=== PATIENT | male | born 1945 | race Caucasian/White ===

== ENCOUNTER 2022-02-17 16:22 | Emergency (ER) | payer OTHER ==
[~2022-02-17] VITALS: Ht 180.3 cm; Wt 117.9 kg
[2022-02-17 16:27] VITALS: BP 158/94
[2022-02-17] MEDS ORDERED: METFORMIN 500 MG TABLET PO ONE (17:00)
[2022-02-17] MEDS ORDERED: METFORMIN 500 MG TABLET ONE (17:25)
== END 2022-02-17 18:26 ==
LOC: ER 17:03
DX: E11.65 Type 2 diabetes mellitus with hyperglycemia (principal); Z60.2 Problems related to living alone
CPT/HCPCS: 82962-TC

== ENCOUNTER 2022-04-09 16:11 | Emergency (ER) | payer OTHER ==
[~2022-04-09] VITALS: Ht 167.6 cm; Wt 108.9 kg
--- NOTE | 2022-04-09 16:19 | NUR ---
ISABELL RA39 FROM [facility] "More Altered than usual. Trach - Vent Dependent" Dx w/Pneumonia on Abx BS-196", TO ER BED 8, HOOKED TO GEOGRAPHIC INFORMATION SCIENTIST, SINUS RHYTHM, CHANGED TO HOSP GOWN, PATIENT WARM TO TOUCH, COOLING MEASURES DONE. RESPIRATORY THERAPIST AT BEDSIDE, VENT SETTINGS OF FiO2: 100%, VT: 500, RATE: 16, PEEP: 5.0. NOTED W RAC IV PERIPHERAL LINE 24G PATENT AND FLUSHING. DR CIFUENTES AT BEDSIDE
--- NOTE | 2022-04-09 16:30 | NUR ---
RAPID COVID SWAB DONE AND SENT TO LAB
--- NOTE | 2022-04-09 16:33 | NUR ---
MOVE SHEET SUBMITTED.
[2022-04-09 16:41] LABS: BASOPHILS # (AUTO) 0.2 K/uL (0.0-0.2); BASOPHILS % (AUTO) 1.1 % (0.0-2.0); EOSINOPHILS % (AUTO) 0.1 % (0.0-6.0); HEMATOCRIT 31 % (39-51); HEMOGLOBIN 9.9 g/dL (13.5-17.5); LYMPHOCYTES # (AUTO) 0.4 K/uL (0.8-4.8); LYMPHOCYTES % (AUTO) 2.7 % (20.0-44.0); MEAN CORPUSCULAR HGB CONC 32 g/dl (31.0-36.0); MEAN CORPUSCULAR VOLUME 89 fL (80-96); MONOCYTES # (AUTO) 1.1 K/uL (0.1-1.30); MONOCYTES % (AUTO) 7.2 % (2.0-12.0); NEUTROPHILS # (AUTO) 14.2 K/uL (1.8-8.9); NEUTROPHILS % (AUTO) 88.9 % (43.0-81.0); PLATELET COUNT (AUTO) 325 K/uL (150-450); RED BLOOD CELL COUNT(AUTO) 3.43 MIL/uL (4.5-6.0); WHITE BLOOD COUNT (AUTO) 15.9 K/uL (4.3-11.0)
[2022-04-09] MEDS ORDERED: INSU100V7 SQ (16:41)
[2022-04-09] MEDS ORDERED: MULT-447 GT (16:41)
[2022-04-09] MEDS ORDERED: INSU100V39 SQ (16:41)
[2022-04-09] MEDS ORDERED: CRAN425C6 GT (16:41)
[2022-04-09] MEDS ORDERED: METO25TA20 GT (16:41)
[2022-04-09] MEDS ORDERED: ACET-2605 GT (16:41)
[2022-04-09] MEDS ORDERED: GLUC1KIT IM (16:41)
[2022-04-09] MEDS ORDERED: MAGN400T26 GT (16:41)
[2022-04-09] MEDS ORDERED: PANT40SU2 GT (16:41)
[2022-04-09] MEDS ORDERED: ZINC50TA69 GT (16:41)
[2022-04-09] MEDS ORDERED: NUT.237L30 GT (16:41)
[2022-04-09] MEDS ORDERED: CRAN3875 GT (16:41)
[2022-04-09] MEDS ORDERED: METR500T GT (16:41)
[2022-04-09] MEDS ORDERED: BISA10SU11 RC (16:41)
[2022-04-09] MEDS ORDERED: CHOL100043 GT (16:41)
[2022-04-09] MEDS ORDERED: DOCU50LI GT (16:41)
[2022-04-09] MEDS ORDERED: THIA100T88 GT (16:41)
[2022-04-09] MEDS ORDERED: HYDR-3976 GT (16:41)
[2022-04-09] MEDS ORDERED: SCOP1PAT11 TD (16:41)
[2022-04-09] MEDS ORDERED: IPRA0.2S9 IH (16:41)
[2022-04-09] MEDS ORDERED: SENN-261 GT (16:41)
[2022-04-09] MEDS ORDERED: LORA-259 GT (16:41)
[2022-04-09] MEDS ORDERED: MAGN400O6 GT (16:41)
[2022-04-09] MEDS ORDERED: ASCO-352 GT (16:41)
[2022-04-09] MEDS ORDERED: FOLI0.4T6 GT (16:41)
[2022-04-09] MEDS ORDERED: CHLO473M5 MM (16:41)
[2022-04-09] MEDS ORDERED: ACET-868 GT (16:41)
[2022-04-09] MEDS ORDERED: CEFE1VIA3 IM (16:41)
[2022-04-09] MEDS ORDERED: ALBU2.5V38 IH (16:41)
[2022-04-09] MEDS ORDERED: ATOR10TA GT (16:41)
[2022-04-09 16:42] LABS: BILIRUBIN,URINE NEGATIVE (NEGATIVE); COLOR,URINE YELLOW (YELLOW); LEUKOCYTE ESTERASE ,URINE NEGATIVE (NEGATIVE); NITRITE, URINE NEGATIVE (NEGATIVE); PROTEIN,URINE 100 mg/dl (NEGATIVE); UGLUCOSE NEGATIVE (NEGATIVE)
[2022-04-09] MEDS ORDERED: ACETAMINOPHEN 650 MG/SUPP.RECT RC ONE (16:43)
[2022-04-09 16:46] LABS: BACTERIA,URINE RARE /HPF (None Seen); HYALINE CASTS, URINE Many /LPF (None Seen); MUCUS,URINE Moderate /LPF (None Seen); WBC,URINE 0-2 /HPF (0-3)
[2022-04-09] MEDS: ACETAMINOPHEN 650 MG/SUPP.RECT RC ONE (16:50)
[2022-04-09 16:56] LABS: ALANINE AMINOTRANSFERASE 66 U/L (12-78); ALBUMIN 1.9 g/dL (3.4-5.0); ALKALINE PHOSPHATASE 136 U/L (46-116); ASPARTATE AMINOTRANSFERASE 58 U/L (15-37); BILIRUBIN,DIRECT 0.1 mg/dL (0.0-0.2); BILIRUBIN,TOTAL 0.3 mg/dL (0.2-1.0); CARBON DIOXIDE 31 mmol/L (21-32); CHLORIDE 97 mmol/L (98-107); CREATININE 0.9 mg/dL (0.6-1.3); GLUCOSE 172 mg/dL (74-106); POTASSIUM 4.1 mmol/L (3.5-5.1); SODIUM SERUM 131 mmol/L (136-145); TOTAL PROTEIN, SERUM 6.1 g/dL (6.4-8.2); UREA NITROGEN, BLOOD 29 mg/dL (7-18)
--- NOTE | 2022-04-09 17:00 | NUR ---
RT Patient brought in by fire department. Placed trach patient (Bivona Portex) on given vent settings: AC 16 500 40% +5. Suctioned thick moderate amount of yellow secretions. Trach secure and patent. Ambu bag at bedside. Vent plugged into red outlet. Alarms on and audible. No SOB or respiratory distress noted at this time.
[2022-04-09] MEDS ORDERED: VANCOMYCIN 1 GM VIAL ONE (17:03)
[2022-04-09] MEDS ORDERED: PIPERACILLIN /TAZOBACTAM 3.375 G VIAL IV ONE (17:04)
[2022-04-09] MEDS: PIPERACILLIN /TAZOBACTAM 3.375 G in IV D5W 50 ML IV ONE (17:06)
[2022-04-09] MEDS: VANCOMYCIN 1 GM in IV D5W 250 ML IV ONE (17:40)
--- NOTE | 2022-04-09 18:32 | NUR ---
FAMILY LEFT CONTACT # VONDA, SON [phone] WILBER, DAUGHTER [phone]
--- NOTE | 2022-04-09 18:34 | NUR ---
PAGED EPIC ALUMNI RELATIONS OFFICER
[2022-04-09] MEDS ORDERED: ACETAMINOPHEN 650 MG/20.3 ML UDC NG PRN (19:00)
[2022-04-09] MEDS ORDERED: ALBUTEROL FS 2.5 MG/0.5 ML VIAL.NEB NEB PRN (19:00)
[2022-04-09] MEDS ORDERED: ONDANSETRON HCL/PF 4 MG/2 ML VIAL IVP PRN (19:00)
[2022-04-09] MEDS ORDERED: IPRATROPIUM BROMIDE 14 GM INHALER (or 12.9 GM) IH PRN (19:00)
[2022-04-09] MEDS ORDERED: IV NS 0.9% 1,000 ML IV SCH (19:00)
--- NOTE | 2022-04-09 19:12 | NUR ---
REPORT GIVEN TO JUAN YATES FOR [facility]
--- NOTE | 2022-04-09 21:47 | NUR ---
CALLED [facility] AND SPOKE WITH DHARA. BUSINESS EXECUTIVE NADER IS CURRENTLY UNAVAILABLE AT THIS TIME. SHE WILL BE PAGING THE CM TO CONTACT BACK.
--- NOTE | 2022-04-09 22:09 | NUR ---
PT IS ACCEPTED AT [facility]. GOING TO 6TH FLOOR ROOM 1617 UNDER THE CARE OF DR. ZUNIGA. CALL [phone] FOR REPORT. NO AMBULANCE ETA AT THIS TIME
--- NOTE | 2022-04-09 22:18 | NUR ---
ETA 0200 FOR UMBRELLA CUTTER VIA [facility]
--- NOTE | 2022-04-09 22:41 | NUR ---
CALLED [facility] AND SPOKE TO DHARA YATES FOR REPORT. [phone]. STATED [facility] DOES NOT ACCEPT VENT PT'S. AWAITING CALL BACK FROM [facility] LEASING PROFESSIONAL FOR PT TO BE ASSIGNED TO TELE ROOM AND CALL BACK NUMBER
--- NOTE | 2022-04-09 22:56 | NUR ---
DHARA FROM [facility] CALLED AND UPDATED HER ON PT'S VENT SETTINGS
--- NOTE | 2022-04-09 23:37 | NUR ---
NEW ROOM. GOING TO TELE 3N RM 2326 CALL [phone]
[2022-04-10] MEDS ORDERED: PIPERACILLIN /TAZOBACTAM 3.375 G in IV D5W 50 ML IV SCH ×2
--- NOTE | 2022-04-10 01:20 | NUR ---
CALLED [facility] FOR REPORT AND WAS ASKED TO CALL BACK IN 5 MINUTES
--- NOTE | 2022-04-10 01:32 | NUR ---
CALLED [facility] FOR REPORT AND WAS ASKED TO CALL BACK IN 30 MINUTES
--- NOTE | 2022-04-10 02:11 | NUR ---
REPORT GIVEN TO SERGIO FROM [facility] FOR [facility]
--- NOTE | 2022-04-10 03:07 | NUR ---
REPORT GIVEN TO [facility] AND OPERATIONS PLANT ATTENDANT FOR PT TO TRANSFER TO [facility]
[2022-04-10 03:17] VITALS: BP 163/88
[2022-04-10] MEDS ORDERED: PANTOPRAZOLE 40 MG VIAL IV SCH (09:00)
== END 2022-04-10 03:29 | disposition short-term general hospital (02) ==
LOC: ER 16:14
DX: A41.89 Other specified sepsis (principal); J18.9 Pneumonia, unspecified organism; J96.20 Acute and chronic respiratory failure, unspecified whether with hypoxia or hypercapnia; E66.01 Morbid (severe) obesity due to excess calories; Z68.39 Body mass index [BMI] 39.0-39.9, adult; Z93.0 Tracheostomy status; Z20.822 Contact with and (suspected) exposure to COVID-19; E87.1 Hypo-osmolality and hyponatremia; R13.10 Dysphagia, unspecified; S12.500D Unspecified displaced fracture of sixth cervical vertebra, subsequent encounter for fracture with routine healing; S12.400D Unspecified displaced fracture of fifth cervical vertebra, subsequent encounter for fracture with routine healing; W19.XXXD Unspecified fall, subsequent encounter; E11.9 Type 2 diabetes mellitus without complications; Z79.4 Long term (current) use of insulin; Z93.1 Gastrostomy status; Z99.11 Dependence on respirator [ventilator] status; E78.5 Hyperlipidemia, unspecified; T14.8XXA Other injury of unspecified body region, initial encounter; X58.XXXA Exposure to other specified factors, initial encounter; Y92.89 Other specified places as the place of occurrence of the external cause; D64.9 Anemia, unspecified; R79.89 Other specified abnormal findings of blood chemistry; G92.8 Other toxic encephalopathy
CPT/HCPCS: 99291; 96365; 71045; 96367; 87426; 84145; 85025; 80048; 87086; 83605 ×2; 80076; 81001; 36415; 84484; 85730; 31720; 87040 ×2; 93005; 87081; J3370; J2543; J7060; C9803

== ENCOUNTER 2022-04-27 01:21 | Inpatient (IN) | payer OTHER ==
[~2022-04-27] VITALS: Ht 172.7 cm; Wt 113.4 kg
[~2022-04-27 01:21] MED LIST: ACET-2605 GT; ACET-868 GT; ALBU2.5V38 IH; ASCO-352 GT; ATOR10TA GT; BISA10SU11 RC; CEFE1VIA3 IM; CHLO473M5 MM; CHOL100043 GT; CRAN3875 GT; CRAN425C6 GT; DOCU50LI GT; FOLI0.4T6 GT; GLUC1KIT IM; HYDR-3976 GT; INSU100V39 SQ; INSU100V7 SQ; IPRA0.2S9 IH; LORA-259 GT; MAGN400O6 GT; MAGN400T26 GT; METO25TA20 GT; METR500T GT; MULT-447 GT; NUT.237L30 GT; PANT40SU2 GT; SCOP1PAT11 TD; SENN-261 GT; THIA100T88 GT; ZINC50TA69 GT
--- NOTE | 2022-04-27 01:30 | NUR ---
ERIC FROM SN[facility] FOR ALTERED MENTAL STATUS BS-160. PATIENT USUALLY RESPONDS WITH A NOD, WAS FOUND ALTERED AT 0045 FROM FACILITY. PATIENT IS FEBRILE AT 101.4. IN BED 08 ON MONITOR AND POX, AWAITING MD CALLES.
--- NOTE | 2022-04-27 01:30 | NUR ---
RT AT PT'S BEDSIDE: TRACH BIVONA 7 INTACT VENT SETTINGS AT: AC RR 14 TV 500 PEEP 5 FIO2 50 SATTING AT 96%
--- NOTE | 2022-04-27 01:30 | NUR ---
RT AT BEDSIDE
--- NOTE | 2022-04-27 01:31 | NUR ---
SUPERVISOR BOTTLE HOUSE CLEANERS: F/C DRAINING URINE; PATENT AND INTACT. GTUBE INTACT.
--- NOTE | 2022-04-27 01:38 | NUR ---
BRIAN COLLECTED AND SENT TO LAB
--- NOTE | 2022-04-27 01:40 | NUR ---
IV ESTABLISHED JEREL #20G S/L
[2022-04-27] MEDS ORDERED: PIPERACILLIN /TAZOBACTAM 3.375 G VIAL IV ONE (01:44)
[2022-04-27] MEDS ORDERED: VANCOMYCIN 1 GM VIAL ONE (01:44)
[2022-04-27] MEDS ORDERED: ACETAMINOPHEN 650 MG/SUPP.RECT RC ONE ×2 (01:44→02:00)
--- NOTE | 2022-04-27 01:44 | NUR ---
RT NOTE PT RECEIVED ON TRACH WITH AMBU BAG @ 100% BEING ADMINISTERED VIA GURNEY. PLACED PT VENT ON MECHANICAL VENTILATOR WITH CURRENT SETTINGS OF AC 14, 500, 50%, +5. BIVONA [address] CUFF NOTED WITH WATER AND IS INFLATED. SUCTION DONE, MODERATE THICK YELLOW SECRETIONS NOTED. TRACH SECURED AND PATENT. NECK BRACE IN PLACE. PT TOLERATING CURRENT SETTINGS WELL AND WILL BE MONITORED CLOSELY. TRUDY MARTINEZ @ BEDSIDE. Addendum: 04/27/22 at 0147 by EFREN WASHINGTON RT Amended: Links added.
--- NOTE | 2022-04-27 01:47 | NUR ---
URINE COLLECTED AND SENT TO LAB
--- NOTE | 2022-04-27 01:49 | NUR ---
MOVE SHEET SUBMITTED.
--- NOTE | 2022-04-27 01:50 | NUR ---
BLOOD AND CULTURES COLLECTED AND SENT TO LAB
--- NOTE | 2022-04-27 01:56 | NUR ---
POC BG [id number]
[2022-04-27] MEDS ORDERED: IV NS 0.9% 1,000 ML BAG IV ONE (02:00)
[2022-04-27] MEDS ORDERED: PIPERACILLIN /TAZOBACTAM 3.375 G in IV D5W 50 ML IV ONE (02:00)
[2022-04-27] MEDS ORDERED: VANCOMYCIN 1 GM in IV D5W 250 ML IV ONE (02:00)
--- NOTE | 2022-04-27 02:00 | NUR ---
PT TAKEN TO CT VIA GURLB WITH RT
--- NOTE | 2022-04-27 02:05 | NUR ---
MILEAGE CLERK AT PT'S BEDSIDE
--- NOTE | 2022-04-27 02:16 | NUR ---
PT RETURNED TO ER BED [address]
[2022-04-27 02:22] LABS: HEMATOCRIT 33 % (39-51); HEMOGLOBIN 10.5 g/dL (13.5-17.5); LYMPHOCYTES # (AUTO) 0.6 K/uL (0.8-4.8); LYMPHOCYTES % (AUTO) 5.4 % (20.0-44.0); MEAN CORPUSCULAR HGB CONC 32 g/dl (31.0-36.0); MEAN CORPUSCULAR VOLUME 89 fL (80-96); MONOCYTES # (AUTO) 0.6 K/uL (0.1-1.30); MONOCYTES % (AUTO) 4.9 % (2.0-12.0); NEUTROPHILS # (AUTO) 10.2 K/uL (1.8-8.9); NEUTROPHILS % (AUTO) 89.7 % (43.0-81.0); PLATELET COUNT (AUTO) 292 K/uL (150-450); RED BLOOD CELL COUNT(AUTO) 3.66 MIL/uL (4.5-6.0); WHITE BLOOD COUNT (AUTO) 11.4 K/uL (4.3-11.0)
[2022-04-27 02:27] LABS: BILIRUBIN,URINE NEGATIVE (NEGATIVE); COLOR,URINE DARK YELLOW (YELLOW); LEUKOCYTE ESTERASE ,URINE MODERATE (NEGATIVE); NITRITE, URINE NEGATIVE (NEGATIVE); PROTEIN,URINE 100 mg/dl (NEGATIVE); UGLUCOSE NEGATIVE (NEGATIVE)
[2022-04-27 02:35] LABS: BACTERIA,URINE Moderate /HPF (None Seen); SQUAMOUS EPITHELIAL CELL,UR Few /HPF (None Seen); WBC,URINE 21-50 /HPF (0-3); YEAST,URINE Hyphal filaments /HPF (None Seen)
[2022-04-27 02:37] LABS: CALCIUM, SERUM 8.7 mg/dL (8.5-10.1); CHLORIDE 94 mmol/L (98-107); CREATININE 0.6 mg/dL (0.6-1.3); GLUCOSE 299 mg/dL (74-106); POTASSIUM 4.5 mmol/L (3.5-5.1); SODIUM SERUM 132 mmol/L (136-145); UREA NITROGEN, BLOOD 24 mg/dL (7-18)
[2022-04-27 02:46] LABS: CARBON DIOXIDE 41 mmol/L (21-32)
--- NOTE | 2022-04-27 02:49 | NUR ---
CO2 LEVEL 41
[2022-04-27 02:53] LABS: ALANINE AMINOTRANSFERASE 56 U/L (12-78); ALBUMIN 1.8 g/dL (3.4-5.0); ALKALINE PHOSPHATASE 524 U/L (46-116); ASPARTATE AMINOTRANSFERASE 34 U/L (15-37); BILIRUBIN,DIRECT 0.3 mg/dL (0.0-0.2); BILIRUBIN,TOTAL 0.5 mg/dL (0.2-1.0); TOTAL PROTEIN, SERUM 6.6 g/dL (6.4-8.2)
--- NOTE | 2022-04-27 03:13 | NUR ---
STAT RAD PAGED
--- NOTE | 2022-04-27 03:16 | NUR ---
POC BS ACCUCHECK 256; DR. DOW DO AWARE
[2022-04-27] MEDS ORDERED: ONDANSETRON HCL/PF 4 MG/2 ML VIAL IVP PRN (07:00)
[2022-04-27] MEDS ORDERED: ZOLPIDEM TARTRATE 5 MG TABLET PO PRN (07:00)
[2022-04-27] MEDS ORDERED: MAG HYDROX/AL HYDROX/SIMETH 30 ML UDC PO PRN (07:00)
[2022-04-27] MEDS ORDERED: MAGNESIUM HYDROXIDE 30 ML UDC PO PRN (07:00)
[2022-04-27] MEDS ORDERED: DEXTROSE 50%-WATER 50 ML DISP.SYRIN IV PRN (07:00)
[2022-04-27] MEDS ORDERED: Z GUARD REMEDY 4 OZ OINT TP PRN (07:00)
[2022-04-27] MEDS ORDERED: PANTOPRAZOLE 40 MG TABLET.DR PO ONE (07:52)
[2022-04-27] MEDS: PANTOPRAZOLE 40 MG TABLET.DR PO SCH (08:00)
--- NOTE | 2022-04-27 08:47 | NUR ---
report given to Yoel YATES for EAG[facility]
[2022-04-27] MEDS ORDERED: Medication Not On Formulary EA (Cran/Vitc/Mannose/Inulin/Brom (Uti-Stat Liquid) 3,875 MG GT SCH (09:00)
[2022-04-27] MEDS ORDERED: LORAZEPAM 1 MG TABLET GT PRN (09:00)
[2022-04-27 09:15] VITALS: BP 142/70
--- NOTE | 2022-04-27 09:15 | NUR ---
RADIOCOMMUNICATIONS TECHNICIANFOOT PRESS OPERATOR NOTE: RECEIVED PT. IN ESE FROM ER AT 0915. REPORT GIVEN BY MAINTENANCE CONSTRUCTION HELPER ANTONIO. PT. IS NON-VERBAL, OPENS EYES AND FOLLOWS SIMPLE COMMANDS SUCH BLINKING EYES. PT. ON MECHANICAL VENT WITH TRACH SIZE PORTEX#7; AC - 14; TV - 500; FIO2 - 45; PEEP - 5; O2 SAT - 95%. NO S/S OF RESPIRATORY DISTRESS. PT. ON TELE MONITOR THAT READS NSR @ 63 BPM. OTHER VS: T - 98.5 F; BP - 142/70. PT. HAS G-TUBE IN MID ABDOMEN, 3 ML RESIDUAL NOTED, CLAMPED. PT. HAS MACHADO CATH, DRAINING CLEAR YELLOW URINE. IV SITE ON L AC #20G, PATENT AND FLUSHING WELL, NO S/S OF INFILTRATION, SALINE LOCKED AT THIS TIME. HE HAS A SACRAL WOUND, CLEANSED WITH NS AND DRIED, COVERED WITH MEPILEX. WOUND CONSULT ORDERED. PT. IS QUADRIPLEGIC. SAFETY MEASURES IN PLACE: BED IN LOWEST AND LOCKED POSITION, HOB ELEVATED; SIDE RAILS UP X3; BED ALARM ON. WILL CONTINUE TO MONITOR PT. FOR ANY CHANGES.
--- NOTE | 2022-04-27 09:28 | NUR ---
Received pt on AC 14 500 50% 5. Titrated to 40%. Trach is secured and patent. Ambu bag at bedside. Pt is moved to CIRO, vent plugged it to red outlet, spare trach at bedside. Portex 7/ Bivona not available.
[2022-04-27] MEDS: PIPERACILLIN /TAZOBACTAM 3.375 G in IV D5W 100 ML IV SCH ×2 (10:45→17:47)
[2022-04-27] MEDS: IV NS 0.9% 1,000 ML IV PRN (10:45)
[2022-04-27] MEDS: CHLORHEXIDINE GLUCONATE 15 ML UDC MM SCH ×2 (10:45→21:22)
[2022-04-27] MEDS: CHOLECALCIFEROL 1,000 UNIT TABLET (VIT D3) GT SCH (10:46)
[2022-04-27] MEDS: MULTIVIT W/MINERALS 1 TAB TABLET GT SCH (10:46)
[2022-04-27] MEDS: METOPROLOL TARTRATE 25 MG TABLET GT SCH ×2 (10:46→21:23)
[2022-04-27] MEDS: ASCORBIC ACID 500 MG TABLET GT SCH (10:46)
[2022-04-27] MEDS: FOLIC ACID 1 MG TABLET GT SCH (10:47)
[2022-04-27 10:53] LABS: ABG BASE EXCESS 13.1 mmol/L; ABG OXYGEN SATURATION 98.7 % (92.0-98.5); ABG PCO2 41.2 mmHg (35.0-45.0); ABG PH 7.565 (7.350-7.450); ABG PO2 132.3 mmHg (75.0-100.0); AaDO2 105.5 mmHg; COHb 0.1 % (0.5-1.5); MetHb 0.1 % (0.0-1.5); O2Hb 98.5 % (94.0-97.0); SITE, ABG Right Radial; VENT MODE, BG AC14 500 40% +5
[2022-04-27] MEDS ORDERED: ALBUTEROL FS 2.5 MG/3 ML VIAL.NEB NEB PRN (11:30)
[2022-04-27] MEDS ORDERED: IPRATROPIUM NEB FS 0.5 MG/2.5 ML AMPUL.NEB NEB PRN (11:30)
[2022-04-27 12:00] VITALS: BP 150/81
[2022-04-27] MEDS: BLOOD SUGAR DIAGNOSTIC 1 EACH STRIP IN SCH ×2 (13:44→18:07)
[2022-04-27] MEDS: VANCOMYCIN 1.25 GM in IV D5W 250 ML IV SCH (14:14)
[2022-04-27 16:00] VITALS: BP 150/85
[2022-04-27] MEDS: GLUCERNA 1.2 1,000 ML BOTTLE PEG PRN (16:56)
[2022-04-27] MEDS: MAGNESIUM OXIDE 400 MG TABLET GT SCH (17:45)
--- NOTE | 2022-04-27 19:12 | NUR ---
DRAGSAW OPERATOR CLOSING NOTE: PT. REMAINS IN BED, OPENS EYES, NON-VERBAL, FOLLOWS COMMANDS SUCH BLINKING EYES. PT. ON TRACH, MECHANICALLY VENTILATED, TRACH SIZE IS PORTEX#7; AC - 14; TV - 500; FIO2 - 45%; PEEP - 5; 02 SAT - 95%. NO S/S OF RESPIRATORY DISTRESS. PT. ON TELE MONITOR THAT READS NSR WITH HR OF 79 BPM. PT. ON MACHADO AND DRAINING CLEAR YELLOW URINE WITH OUTPUT OF 500 ML THIS SHIFT. PT. HAS L AC #20G WITH NS RUNNING AT 75 ML/HR. PATENT. IV SITE DRESSING C/D/I AND NO S/S OF INFILTRATION. WOUND CLEANED AND DRESSED WITH MEPILEX. TURNED AND REPOSITIONED Q2H. SAFETY MEASURES REMAINS IN PLACE: BED IN LOCKED AND LOWEST POSITION, HOB ELEVATED, SIDE RAILS UP X3, BED ALARM ON. WILL ENDORSE CONTINUITY OF CARE TO BUSINESS PERFORMANCE MANAGER RN.
[2022-04-27 20:00] VITALS: BP 151/72
--- NOTE | 2022-04-27 20:03 | NUR ---
DEPARTMENT CHAIR OPENING NOTES: RECEIVED PATIENT AWAKE IN BED, BED IN LOW POSITION CALL LIGHTS WITHIN REACH, NO COMPLAIN OF PAIN AND DISCOMFORT AT THIS TIME, ON MECHANICAL VENT SATURATING WELL, PATIENT ON TELE MONITOR- SR75,ON G TUBE OF GLUCERNA 1.2@30ML/HR INFUSING WELL, PATIENT WITH LAC#20 WITH ONGOING NSS@75ML/HR INFUSING WELL, PATIENT KEPT CLEAN AND DRY ALL NEEDS MET WILL CONTINUE TO MONITOR.
[2022-04-27] MEDS: DOCUSATE SODIUM LIQ 100 MG/10 ML UDC GT SCH (21:22)
[2022-04-27] MEDS: ATORVASTATIN 10 MG TABLET GT SCH (21:23)
[2022-04-27] MEDS: ACETAMINOPHEN 325 MG TABLET PO PRN (21:23)
[2022-04-27] MEDS: INSULIN GLARGINE, 100 UNIT/ML CARTRIDGE SQ SCH (22:44)
[2022-04-28] VITALS (12 sets, daily range): BP systolic 115–188; BP diastolic 59–97
[2022-04-28] MEDS: INSULIN REGULAR, HUMAN 100 UNIT/ML 3 ML VIAL SQ PRN ×5 (00:38→23:44)
[2022-04-28] MEDS: BLOOD SUGAR DIAGNOSTIC 1 EACH STRIP IN SCH ×5 (00:42→23:42)
--- NOTE | 2022-04-28 00:42 | NUR ---
RN NOTES: BLOOD SUGAR-173 3 UNITS REGULAR INSULIN GIVEN PER SLIDING SCALE
[2022-04-28] MEDS: VANCOMYCIN 1.25 GM in IV D5W 250 ML IV SCH ×3 (01:21→21:24)
[2022-04-28] MEDS: PIPERACILLIN /TAZOBACTAM 3.375 G in IV D5W 100 ML IV SCH ×3 (03:17→18:41)
[2022-04-28] MEDS: ACETAMINOPHEN 325 MG TABLET PO PRN ×2 (03:29→09:44)
--- NOTE | 2022-04-28 06:00 | NUR ---
RN NOTES: BLOOD SUGAR-172/ 3 UNITS INSULIN GIVEN
[2022-04-28 06:34] LABS: BASOPHILS % (AUTO) 0.2 % (0.0-2.0); CALCIUM, SERUM 8.7 mg/dL (8.5-10.1); CARBON DIOXIDE 36 mmol/L (21-32); CHLORIDE 94 mmol/L (98-107); CREATININE 0.5 mg/dL (0.6-1.3); EOSINOPHILS % (AUTO) 0.2 % (0.0-6.0); GLUCOSE 206 mg/dL (74-106); HEMATOCRIT 34 % (39-51); HEMOGLOBIN 11.1 g/dL (13.5-17.5); LYMPHOCYTES % (AUTO) 8.5 % (20.0-44.0); MEAN CORPUSCULAR HGB CONC 33 g/dl (31.0-36.0); MEAN CORPUSCULAR VOLUME 86 fL (80-96); MONOCYTES # (AUTO) 0.8 K/uL (0.1-1.30); MONOCYTES % (AUTO) 6.5 % (2.0-12.0); NEUTROPHILS # (AUTO) 10.2 K/uL (1.8-8.9); NEUTROPHILS % (AUTO) 84.6 % (43.0-81.0); PHOSPHORUS 4.4 mg/dL (2.5-4.9); PLATELET COUNT (AUTO) 332 K/uL (150-450); POTASSIUM 4.2 mmol/L (3.5-5.1); SODIUM SERUM 132 mmol/L (136-145); UREA NITROGEN, BLOOD 20 mg/dL (7-18); WHITE BLOOD COUNT (AUTO) 12.1 K/uL (4.3-11.0)
--- NOTE | 2022-04-28 07:02 | NUR ---
ASSOCIATE PROFESSOR OF COUNSELING CLOSING NOTES: PATIENT SLEEP IN BED COMFORTABLY, AROUSABLE TO VERBAL STIMULI, BED IN LOW POSITION CALL LIGHTS WITHIN REACH, NO COMPLAIN OF PAIN AND DISCOMFORT AT THIS TIME ON MECHANICAL VENT SATURATING WELL, PATIENT ON TELE MONITOR SR-89, IV LINEA TLAC#20 WITH ONGOING NSS@75ML/HR INFUSING WELL, KEPT CLEAN AND DRY ALL NEEDS MET ENDORSE TO INCOMING SHIFT.
--- NOTE | 2022-04-28 07:15 | NUR ---
COPY MACHINE OPERATOR OPENING NOTE: RECEIVED PT. IN BED, OPENS EYES, NON-VERBAL, FOLLOWS COMMANDS SUCH BLINKING EYES. PT. ON TRACH, MECHANICALLY VENTILATED, TRACH SIZE IS PORTEX#7; AC - 14; TV - 500; FIO2 - 45%; PEEP - 5; 02 SAT - 95%. NO S/S OF RESPIRATORY DISTRESS. PT. ON TELE MONITOR THAT READS NSR WITH HR OF 75 BPM. PT. ON MACHADO AND DRAINING CLEAR YELLOW URINE. PT. HAS L AC #20G WITH NS RUNNING AT 75 ML/HR. PATENT. IV SITE DRESSING C/D/I AND NO S/S OF INFILTRATION. SAFETY MEASURES IN PLACE: BED IN LOCKED AND LOWEST POSITION, HOB ELEVATED, SIDE RAILS UP X3, BED ALARM ON. WILL CONTINUE TO MONITOR PT. FOR ANY CHANGES.
--- NOTE | 2022-04-28 07:15 | NUR ---
EXPORT CLERK CLOSING NOTE: PT. REMAINS IN BED, OPENS EYES, NON-VERBAL, FOLLOWS COMMANDS SUCH BLINKING EYES. PT. ON TRACH, MECHANICALLY VENTILATED, TRACH SIZE IS PORTEX#7; AC - 14; TV - 500; FIO2 - 45%; PEEP - 5; 02 SAT - 98%. BREATHING EVEN AND UNLABORED. PT. ON TELE MONITOR THAT READS NSR WITH HR OF 67 BPM. PT. ON MACHADO AND DRAINING CLOUDY YELLOW/JOANN URINE. MACHADO FLUSHED EVERY 2 HRS ORDERED TO MAINTAIN PATENCY. PT. NOW HAS ADAN MIDLINE #18G. PATENT. IV SITE DRESSING C/D/I AND NO S/S OF INFILTRATION. WOUND TREATMENT DONE ORDERED. PT. HAD FEVER FROM MORNING TO EARLY AFTERNOON, BUT NOW HAS 97.8 F ORAL TEMP AFTER TYLENOL AND COOLING MEASURES. TURNED AND REPOSITIONED Q2H. SAFETY MEASURES REMAIN IN PLACE: BED IN LOCKED AND LOWEST POSITION, HOB ELEVATED, SIDE RAILS UP X3, BED ALARM ON. WILL ENDORSE CONTINUITY OF CARE TO MYSQL DBA RN. Addendum: 04/28/22 at 1931 by VIMAL ORTEZ RN TIME OF ENTRY INCORRECT. IT SHOULD BE 1914 INSTEAD OF 714.
--- NOTE | 2022-04-28 08:30 | NUR ---
LIGHT TECHNICIAN NOTE: SUPERVISOR GRAPHITE RN MENTIONED DURING HAND-OFF REPORT THAT PT. HAD LOW URINE OUTPUT THROUGHOUT THE NIGHT. DID BLADDER SCAN AT 0745 AND GOT A READING OF >999 ML. BP AT THAT TIME WAS 188/97 WITH HR OF 92. FLUSHED MACHADO WITH SALINE WATER AND STARTED TO DRAIN CLOUDY JOANN URINE. CLAMPED MACHADO FOR 15 MINUTES AFTER THE FIRST 500 ML. FLUSHED MACHADO 3 MORE TIMES AFTER THAT AND GOT A TOTAL URINE OUTPUT OF 2,000 ML. RECHECKED BP AND GOT 115/59 WITH HR OF 76 BPM. WILL HOLD 9AM DOSE OF METOPROLOL DUE TO LOW BP. PT. LAID AT 20 DEGREES WITH LEGS A LITTLE ELEVATED. FEEDING PAUSED FOR NOW. WILL CONTINUE TO MONITOR FOR ANY CHANGES.
--- NOTE | 2022-04-28 08:33 | NUR ---
WOUND CARE CONSULT: PT PRESENTS WITH GENERALIZED EDEMA, DISCOLORATIONS/SCARRING TO LOWER LEGS AND SACRAL SCARRING WITH INTACT DEEP TISSUE INJURY, ALL PRESENT ON ADMISSION. PT NOTED TO HAVE MACHADO CATH AND CERVICAL COLLAR. RECOMMENDATIONS MADE FOR SKIN PROTECTION. DISCUSSED WITH NURSING STAFF. MD IN AGREEMENT WITH PLAN OF CARE.
[2022-04-28] MEDS: ASCORBIC ACID 500 MG TABLET GT SCH (08:59)
[2022-04-28] MEDS: CHOLECALCIFEROL 1,000 UNIT TABLET (VIT D3) GT SCH (08:59)
[2022-04-28] MEDS: FOLIC ACID 1 MG TABLET GT SCH (08:59)
[2022-04-28] MEDS: MULTIVIT W/MINERALS 1 TAB TABLET GT SCH (08:59)
[2022-04-28] MEDS: PANTOPRAZOLE 40 MG TABLET.DR PO SCH (08:59)
[2022-04-28] MEDS: CHLORHEXIDINE GLUCONATE 15 ML UDC MM SCH ×2 (09:00→21:20)
[2022-04-28] MEDS: METOPROLOL TARTRATE 25 MG TABLET GT SCH ×2 (09:00→21:20)
--- NOTE | 2022-04-28 09:45 | NUR ---
COAL FEEDER OPERATOR NOTE: RECHECKED TEMP @ 0940 - 101.6 F. TYLENOL 650 MG GIVEN VIA G-TUBE. WILL RECHECK TEMP IN AN HOUR.
--- NOTE | 2022-04-28 11:00 | NUR ---
HOT IRON WORKER NOTE: PT.'S VITAL SIGNS RECHECKED AT 1045. ORAL TEMP STILL AT 101.9 F. COOLING MEASURES APPLIED. BP IS NOW AT 137/81 WITH HR OF 76. SATURATING AT 95% ON CURRENT VENT SETTINGS. LOPRESSOR 12.5 MG ORIGINALLY SCHEDULED AT 0900 GIVEN @ 1057 VIA G-TUBE. WILL CONTINUE TO MONITOR PT'S TEMP AND BP.
--- NOTE | 2022-04-28 13:55 | NUR ---
INSIDE SALES ENGINEER NOTE: US BOARD ATTENDANT WHO DID THE BILATERAL UPPER EXTREMITY DUPLEX VENOUS ULTRASOUND AT BEDSIDE PRELIMINARILY REPORTED THAT PT. HAS A CLOT IN LEFT CEPHALIC VEIN. IVF AND VANCOMYCIN DOSE SCHEDULED AT 1400 WILL BE HELD UNTIL MIDLINE INSERTION THIS PM. MD AWARE. WILL CONTINUE TO MONITOR PT. FOR ANY CHANGES.
[2022-04-28] MEDS: GLUCERNA 1.2 1,000 ML BOTTLE PEG PRN (17:44)
[2022-04-28] MEDS: MAGNESIUM OXIDE 400 MG TABLET GT SCH (18:53)
--- NOTE | 2022-04-28 19:15 | NUR ---
STONEWORK SUPERVISOR CLOSING NOTE: PT. REMAINS IN BED, OPENS EYES, NON-VERBAL, FOLLOWS COMMANDS SUCH BLINKING EYES. PT. ON TRACH, MECHANICALLY VENTILATED, TRACH SIZE IS PORTEX#7; AC - 14; TV - 500; FIO2 - 45%; PEEP - 5; 02 SAT - 98%. BREATHING EVEN AND UNLABORED. PT. ON TELE MONITOR THAT READS NSR WITH HR OF 67 BPM. PT. ON MACHADO AND DRAINING CLOUDY YELLOW/JOANN URINE. MACHADO FLUSHED EVERY 2 HRS ORDERED TO MAINTAIN PATENCY. PT. NOW HAS ADAN MIDLINE #18G. PATENT. IV SITE DRESSING C/D/I AND NO S/S OF INFILTRATION. WOUND TREATMENT DONE ORDERED. PT. HAD FEVER FROM MORNING TO EARLY AFTERNOON, BUT NOW HAS 97.8 F ORAL TEMP AFTER TYLENOL AND COOLING MEASURES. TURNED AND REPOSITIONED Q2H. SAFETY MEASURES REMAIN IN PLACE: BED IN LOCKED AND LOWEST POSITION, HOB ELEVATED, SIDE RAILS UP X3, BED ALARM ON. WILL ENDORSE CONTINUITY OF CARE TO ADMINISTRATIVE REPRESENTATIVE RN.
--- NOTE | 2022-04-28 19:30 | NUR ---
RN NOTE RECEIVED PATIENT IN BED, AO X 1, RESPONDS BY BLINKING EYES, IN NO ACUTE DISTRESS, ON TRACH TO VENT WITH SETTINGS PRESCRIBED, SATURATION AT 99%, SR ON THE MONITOR, HR IS 66. ADAN MIDLINE PATENT AND FLUSHING WELL, NO S/S OF INFECTION OR INFILTRATION WITH NS INFUSING AT 75 ML/HR. GTUBE IN PLACE, POSITIVE PLACEMENT NOTED, NO RESIDUAL, WITH GLUCERNA AT 70 ML/HR. MACHADO CATH DRAINING TO A CLOUDY, YELLOW OUTPUT. SAFETY MEASURES IN PLACE, BED IS LOCKED AND AT LOWEST POSITION. CALL LIGHT WITHIN REACH OF PATIENT. WILL CONT TO MONITOR AND REASSESS FOR ANY CHANGES.
[2022-04-28] MEDS: ATORVASTATIN 10 MG TABLET GT SCH (21:23)
[2022-04-28] MEDS: ENOXAPARIN SODIUM 100 MG/ML DISP.SYRIN SQ SCH (21:23)
[2022-04-28] MEDS: DOCUSATE SODIUM LIQ 100 MG/10 ML UDC GT SCH (21:23)
[2022-04-28] MEDS: INSULIN GLARGINE, 100 UNIT/ML CARTRIDGE SQ SCH (23:43)
[2022-04-29] VITALS: BP 158/80
[2022-04-29] MEDS: PIPERACILLIN /TAZOBACTAM 3.375 G in IV D5W 100 ML IV SCH ×3 (02:03→17:10)
--- NOTE | 2022-04-29 03:10 | NUR ---
RN NOTE URINE SPECIMEN COLLECTED, JAMES FROM LAB NOTIFIED
[2022-04-29 04:00] VITALS: BP 159/78
[2022-04-29] MEDS: IV NS 0.9% 1,000 ML IV PRN (05:36)
[2022-04-29] MEDS: VANCOMYCIN 1.25 GM in IV D5W 250 ML IV SCH ×2 (06:08→13:19)
[2022-04-29] MEDS: BLOOD SUGAR DIAGNOSTIC 1 EACH STRIP IN SCH ×3 (06:08→17:25)
[2022-04-29] MEDS: INSULIN REGULAR, HUMAN 100 UNIT/ML 3 ML VIAL SQ PRN ×3 (06:09→17:34)
[2022-04-29 06:49] LABS: BASOPHILS % (AUTO) 0.2 % (0.0-2.0); HEMATOCRIT 32 % (39-51); HEMOGLOBIN 10.9 g/dL (13.5-17.5); LYMPHOCYTES % (AUTO) 11.3 % (20.0-44.0); MEAN CORPUSCULAR HGB CONC 34 g/dl (31.0-36.0); MEAN CORPUSCULAR VOLUME 87 fL (80-96); MONOCYTES # (AUTO) 0.7 K/uL (0.1-1.30); MONOCYTES % (AUTO) 7.7 % (2.0-12.0); NEUTROPHILS # (AUTO) 6.8 K/uL (1.8-8.9); NEUTROPHILS % (AUTO) 79.8 % (43.0-81.0); PLATELET COUNT (AUTO) 279 K/uL (150-450); RED BLOOD CELL COUNT(AUTO) 3.73 MIL/uL (4.5-6.0); WHITE BLOOD COUNT (AUTO) 8.5 K/uL (4.3-11.0)
[2022-04-29 07:04] LABS: CARBON DIOXIDE 36 mmol/L (21-32); CHLORIDE 94 mmol/L (98-107); CREATININE 0.4 mg/dL (0.6-1.3); GLUCOSE 202 mg/dL (74-106); MAGNESIUM 2.1 mg/dL (1.8-2.4); PHOSPHORUS 3.1 mg/dL (2.5-4.9); POTASSIUM 3.5 mmol/L (3.5-5.1); SODIUM SERUM 131 mmol/L (136-145); UREA NITROGEN, BLOOD 15 mg/dL (7-18)
--- NOTE | 2022-04-29 07:30 | NUR ---
RN OPENING NOTE PATIENT IS LAYINH ON THE BED AWAKE A&OX0 NON VERBAL BUT CAN USE HIS EYES TO COMMUNICATE. PATIENT IS SATTING AT 96% ON VENT RATE 14, TV 500, FIO2 45, PEEP 5. ALL VSS. SR. DIET GLUCERNA @70ML/HR 10 RESIDUAL. IV ADAN MIDLINE PATENT AND INTACT RUNNING NS @75 MLS/HR. VOIDING VIA MACHADO CATHETER PATENT AND DRAINING BELOW THE BLADDER. MACHADO NEEDS FLUSHES PRN. ALL SAFETY FALL PRECAUTIONS IN PLACE BED LOCK ON, BED IN LOWEST POSITION BED ALARM ON, SIDE RAILS UP, CALL LIGHT WITHIN REACH. WILL CONTINUE TO MONITOR.
[2022-04-29 08:00] VITALS: BP 160/83
[2022-04-29] MEDS: ASCORBIC ACID 500 MG TABLET GT SCH (08:57)
[2022-04-29] MEDS: MULTIVIT W/MINERALS 1 TAB TABLET GT SCH (08:57)
[2022-04-29] MEDS: CHLORHEXIDINE GLUCONATE 15 ML UDC MM SCH ×2 (08:57→20:40)
[2022-04-29] MEDS: FOLIC ACID 1 MG TABLET GT SCH (08:57)
[2022-04-29] MEDS: CHOLECALCIFEROL 1,000 UNIT TABLET (VIT D3) GT SCH (08:58)
[2022-04-29] MEDS: METOPROLOL TARTRATE 25 MG TABLET GT SCH ×2 (08:58→21:33)
[2022-04-29] MEDS: ENOXAPARIN SODIUM 100 MG/ML DISP.SYRIN SQ SCH ×2 (08:59→20:41)
[2022-04-29] MEDS: PANTOPRAZOLE 40 MG TABLET.DR PO SCH (09:03)
[2022-04-29 12:00] VITALS: BP 167/80
[2022-04-29 16:00] VITALS: BP 142/76
[2022-04-29 16:08] LABS: BILIRUBIN,URINE NEGATIVE (NEGATIVE); COLOR,URINE YELLOW (YELLOW); LEUKOCYTE ESTERASE ,URINE LARGE (NEGATIVE); NITRITE, URINE NEGATIVE (NEGATIVE); PH,URINE 6.5 (5.0-8.0); PROTEIN,URINE 30 mg/dl (NEGATIVE); UGLUCOSE NEGATIVE (NEGATIVE)
[2022-04-29 16:28] LABS: BACTERIA,URINE 2+ /HPF (None Seen); RBC,URINE 21-50 /HPF (0-2); SQUAMOUS EPITHELIAL CELL,UR Few /HPF (None Seen); WBC,URINE 81-100 /HPF (0-3)
[2022-04-29] MEDS: MAGNESIUM OXIDE 400 MG TABLET GT SCH (17:24)
--- NOTE | 2022-04-29 19:10 | NUR ---
RN opening notes Pt is resting in bed comfortably. Pt is non verbal, open eyes and able to blink his eyes. Pt is on mec. vent with O2 sat is 99%. No SOB. No S/s of distress noted. tele monitor showed SR with PVC and elevated T wave hr at 73. dotson cath is intac and draining yellow urine. Gtube feeding is inplaced and running 70 ml/hr with 0 residual. ADAN midline is inpaced. safety precautions is maintained. Bed at low position, brakes locked, side rails upX3, hob elevated, bed alarm is on and call light is within reach. Will continue to monitor.
--- NOTE | 2022-04-29 19:11 | NUR ---
RN NOTE ALL CARE ENDORSED TO PROCEDURES NURSE NURSE. PATIENT STABLE ALL QUESTIONS ANSWERED.
[2022-04-29 20:00] VITALS: BP 148/74
[2022-04-29] MEDS: DOCUSATE SODIUM LIQ 100 MG/10 ML UDC GT SCH (21:20)
[2022-04-29] MEDS: ATORVASTATIN 10 MG TABLET GT SCH (21:20)
[2022-04-29] MEDS: INSULIN GLARGINE, 100 UNIT/ML CARTRIDGE SQ SCH (22:02)
[2022-04-30] VITALS: BP 147/78
[2022-04-30] MEDS: BLOOD SUGAR DIAGNOSTIC 1 EACH STRIP IN SCH ×5 (00:39→23:06)
[2022-04-30] MEDS: INSULIN REGULAR, HUMAN 100 UNIT/ML 3 ML VIAL SQ PRN ×4 (00:42→23:13)
[2022-04-30] MEDS: PIPERACILLIN /TAZOBACTAM 3.375 G in IV D5W 100 ML IV SCH ×2 (01:02→09:14)
[2022-04-30] MEDS: GLUCERNA 1.2 1,000 ML BOTTLE PEG PRN (02:47)
[2022-04-30 04:00] VITALS: BP 145/72
[2022-04-30] MEDS: VANCOMYCIN 1.25 GM in IV D5W 250 ML IV SCH ×2 (05:42→16:15)
--- NOTE | 2022-04-30 06:48 | NUR ---
RN closing notes Pt is resting in bed comfortably. Pt is non verbal, open eyes and able to blink his eyes. Pt is on mec. vent with O2 sat is 99%. No SOB. No S/s of distress noted. VS is stable. Routine meds were given as ordered. tele monitor showed SR hr at 65. dotson cath is intact and draining yellow urine 1200ml. Gtube feeding is inplaced and running 70 ml/hr with 0 residual. Wound care provided as ordered. ADAN midline is inplaced. Kept Pt clean, dry and comfortable. safety precautions is maintained. Bed at low position, brakes locked, side rails upX3, hob elevated, bed alarm is on and call light is within reach. Will endorse to am nurse for EAGLE.
--- NOTE | 2022-04-30 07:30 | NUR ---
CENSUS CLERK OPENING NOTES RECEIVED PATIENT ON BED AWAKE, OPENS EYES AND RESPONDS BY BLINKING HIS EYES. ON MECHANICAL VENT TOLERATING CURRENT SETTINGS. NOT IN DISTRESS. WITH COLLAR SUPPORT FOR PT HAD HISTORY OF C4-C5 FRACTURE. ON TELE MONITOR CURRENTLY READING SINUS RHYTHM AT 68BPM. WITH MACHADO CATHETER IN PLACED DRAINING CLEAR YELLOW URINE. WITH IV ACCESS AT THE RIGHT UPPER MIDLINE PATENT AND INTACT. ON GLUCERNA FEEDING AT 70ML/HR VIA G-TUBE TOLERATING WELL. SAFETY MEASURES IN PLACED. CALL LIGHT WITHIN REACH. BED ON LOWEST LOCKED POSITION, SIDE RAILS UP X2. WILL CONTINUE TO MONITOR.
[2022-04-30 08:00] VITALS: BP 155/66
[2022-04-30] MEDS: CHLORHEXIDINE GLUCONATE 15 ML UDC MM SCH ×2 (09:07→21:53)
[2022-04-30] MEDS: FOLIC ACID 1 MG TABLET GT SCH (09:08)
[2022-04-30] MEDS: MULTIVIT W/MINERALS 1 TAB TABLET GT SCH (09:08)
[2022-04-30] MEDS: PANTOPRAZOLE 40 MG TABLET.DR PO SCH (09:08)
[2022-04-30] MEDS: METOPROLOL TARTRATE 25 MG TABLET GT SCH ×2 (09:08→21:54)
[2022-04-30] MEDS: CHOLECALCIFEROL 1,000 UNIT TABLET (VIT D3) GT SCH (09:09)
[2022-04-30] MEDS: ASCORBIC ACID 500 MG TABLET GT SCH (09:09)
[2022-04-30] MEDS: ENOXAPARIN SODIUM 100 MG/ML DISP.SYRIN SQ SCH ×2 (09:09→21:55)
[2022-04-30 09:30] LABS: CALCIUM, SERUM 7.9 mg/dL (8.5-10.1); CARBON DIOXIDE 36 mmol/L (21-32); CHLORIDE 94 mmol/L (98-107); CREATININE 0.5 mg/dL (0.6-1.3); GLUCOSE 152 mg/dL (74-106); POTASSIUM 3.6 mmol/L (3.5-5.1); SODIUM SERUM 133 mmol/L (136-145); UREA NITROGEN, BLOOD 13 mg/dL (7-18)
[2022-04-30 12:00] VITALS: BP 183/89
[2022-04-30 16:00] VITALS: BP 183/89
[2022-04-30] MEDS: MAGNESIUM OXIDE 400 MG TABLET GT SCH (17:13)
--- NOTE | 2022-04-30 18:31 | NUR ---
SETTER OFF CLOSING NOTES PATIENT ON BED AWAKE, OPENS EYES AND RESPONDS BY BLINKING HIS EYES. ON MECHANICAL VENT TOLERATING CURRENT SETTINGS. NOT IN DISTRESS. WITH COLLAR SUPPORT FOR PT HAD HISTORY OF C4-C5 FRACTURE. ON TELE MONITOR CURRENTLY READING SINUS RHYTHM AT 86BPM. WITH MACHADO CATHETER IN PLACED DRAINING CLEAR YELLOW URINE. WITH IV ACCESS AT THE RIGHT UPPER MIDLINE PATENT AND INTACT. ON GLUCERNA FEEDING AT 70ML/HR VIA G-TUBE TOLERATING WELL. DUE MEDS GIVEN. SAFETY MEASURES IN PLACED. CALL LIGHT WITHIN REACH. BED ON LOWEST LOCKED POSITION, SIDE RAILS UP X2. WILL ENDORSE TO NEXT SHIFT FOR EAGLE.
[2022-04-30 20:00] VITALS: BP 153/64
--- NOTE | 2022-04-30 20:18 | NUR ---
RT NOTE PT RECEIVED TRACHED ON MECHANICAL VENTILATION. BIVONA [address] PT NOTED WITH NECK BRACE. SUCTION DONE, TRACH SECURED AND PATENT. NO RESPIRATORY DISTRESS NOTED. WILL CONTINUE TO MONITOR. CONT. PULSE OX CONNECTED.
[2022-04-30] MEDS: ATORVASTATIN 10 MG TABLET GT SCH (21:53)
[2022-04-30] MEDS: DOCUSATE SODIUM LIQ 100 MG/10 ML UDC GT SCH (21:53)
[2022-04-30] MEDS: ACETAMINOPHEN 325 MG TABLET PO PRN (21:53)
--- NOTE | 2022-04-30 21:53 | NUR ---
RN NOTE PT NOTED TO HAVE TEMPERATURE OF 102.7. PT ADMINISTERED TYLENOL 650 MG. WILL MONITOR FOR EFFECTIVENESS.
[2022-04-30] MEDS: CEFEPIME 2 GM in IV D5W 100 ML IV SCH (22:00)
--- NOTE | 2022-04-30 22:54 | NUR ---
CRYOLITE RECOVERY OPERATOR OPENING NOTE PT RECEIVED IN BED, NON-VERBAL, OPENS EYES, PT NOTED TO FOLLOW COMMANDS WHEN GIVING CHLORHEXIDINE MOUTHWASH; PT WOULD OPEN MOUTH TOLD. PT ON PORTEX #7, AC 14, TV 500, FIO2 45%, PEEP 5; CURRENT O2SAT OF 95%, NO S/S OF RESP DISTRESS, NO SOB OR COUGH, NON-LABORED AND EQUAL BREATHING; APPEARS COMFORTABLE OVERALL. PT ATTACHED TO EXTERNAL MONITOR, SR WITH HR OF 87. PT NOTED TO HAVE TEMPERATURE OF 102.7; PT ADMINISTERED TYLENOL 650 MG. MACHADO INTACT AND PATENT WITH NO SIGNS OF LEAKING, DRAINING CLEAR AND YELLOW URINE. GTD C/D/I WITH GLUCERNA RUNNING AT 70 ML/HR. ADAN MIDLINE INTACT AND PATENT, FLUSHES EASILY WITH NO RESISTANCE, NS RUNNING AT 75 ML/HR. BED IN LOWEST POSITION, CALL LIGHT WITHIN REACH, SIDE RAILS UP X3. WILL CONTINUE TO MONITOR THROUGHOUT THE NIGHT.
[2022-04-30] MEDS: INSULIN GLARGINE, 100 UNIT/ML CARTRIDGE SQ SCH (23:13)
[2022-04-30] MEDS: IV NS 0.9% 1,000 ML IV PRN (23:20)
[2022-05-01] VITALS: BP 130/60
[2022-05-01] MEDS: GLUCERNA 1.2 1,000 ML BOTTLE PEG PRN ×2 (00:47→17:04)
[2022-05-01 04:00] VITALS: BP 127/69
[2022-05-01] MEDS: CEFEPIME 2 GM in IV D5W 100 ML IV SCH ×3 (05:51→21:14)
[2022-05-01] MEDS: VANCOMYCIN 1.25 GM in IV D5W 250 ML IV SCH (05:53)
[2022-05-01] MEDS: BLOOD SUGAR DIAGNOSTIC 1 EACH STRIP IN SCH ×4 (06:09→23:01)
[2022-05-01] MEDS: INSULIN REGULAR, HUMAN 100 UNIT/ML 3 ML VIAL SQ PRN ×4 (06:12→23:00)
--- NOTE | 2022-05-01 06:58 | NUR ---
STUDY ABROAD ADVISOR CLOSING NOTE PT REMAINS IN BED, NON-VERBAL, OPENS EYES, STILL CONTINUES TO FOLLOW SIMPLE COMMANDS; OTHERWISE NO SIGNIFICANT CHANGES TO NEURO STATUS. PT REMAINS ON SAME VENT SETTINGS; PT TOLERATED VENT SETTINGS WELL; O2SAT STABLE AT 95% THROUGHOUT THE WHOLE NIGHT, NO S/S OF RESP DISTRESS, NO SOB OR COUGH, NON-LABORED AND EQUAL BREATHING; NOTED TO HAVE A LOT OF SECRETIONS COMING FROM MOUTH; PT SUCTIONED APPROPRIATELY. ATTACHED TO EXTERNAL MONITOR, SR WITH HR RANGING FROM 70- 87. MACHADO INTACT AND PATENT WITH NO SIGNS OF LEAKING, DRAINING CLEAR AND YELLOW URINE. GTD C/D/I WITH GLUCERNA RUNNING AT 70 ML/HR; NO RESIDUALS NOTED. ADAN MIDLINE INTACT AND PATENT, FLUSHES EASILY WITH NO RESISTANCE, NS RUNNING AT 75 ML/HR. ALL DUE MEDS ADMINISTERED DURING THE NIGHT. BED IN LOWEST POSITION, CALL LIGHT WITHIN REACH, SIDE RAILS UP X3. WILL ENDORSE TO DAYSHIFT NURSE TO CONTINUE CARE.
--- NOTE | 2022-05-01 07:03 | NUR ---
EVENING OR NIGHT NURSE SUPERVISOR OPENING NOTE PT RECEIVED IN BED, NON-VERBAL, OPENS EYES,PER REPORT PT IS ABLE TO FOLLOW COMMANDS . PT ON PORTEX #7, AC 14, TV 500, FIO2 45%, PEEP 5; CURRENT O2SAT OF 95%, NO S/S OF RESP DISTRESS, NO SOB , NON-LABORED AND EQUAL BREATHING; APPEARS COMFORTABLE OVERALL. PT ATTACHED TO EXTERNAL MONITOR, SR . MACHADO INTACT AND PATENT WITH NO SIGNS OF LEAKING, DRAINING CLEAR AND YELLOW URINE. GTD C/D/I WITH GLUCERNA RUNNING AT 70 ML/HR. ADAN MIDLINE INTACT AND PATENT, FLUSHES EASILY WITH NO RESISTANCE, NS RUNNING AT 75 ML/HR. BED IN LOWEST POSITION, CALL LIGHT WITHIN REACH, SIDE RAILS UP X3. WILL CONTINUE TO MONITOR
[2022-05-01 07:37] LABS: POTASSIUM 4.1 mmol/L (3.5-5.1)
[2022-05-01] MEDS: PANTOPRAZOLE 40 MG TABLET.DR PO SCH (07:38)
[2022-05-01 08:00] VITALS: BP 132/70
[2022-05-01] MEDS: CHLORHEXIDINE GLUCONATE 15 ML UDC MM SCH ×2 (08:02→21:14)
[2022-05-01] MEDS: CHOLECALCIFEROL 1,000 UNIT TABLET (VIT D3) GT SCH (08:03)
[2022-05-01] MEDS: ASCORBIC ACID 500 MG TABLET GT SCH (08:03)
[2022-05-01] MEDS: MULTIVIT W/MINERALS 1 TAB TABLET GT SCH (08:03)
[2022-05-01] MEDS: FOLIC ACID 1 MG TABLET GT SCH (08:03)
[2022-05-01] MEDS: METOPROLOL TARTRATE 25 MG TABLET GT SCH ×2 (08:04→21:17)
[2022-05-01] MEDS: ENOXAPARIN SODIUM 100 MG/ML DISP.SYRIN SQ SCH (08:06)
[2022-05-01 12:00] VITALS: BP 128/67
[2022-05-01 16:00] VITALS: BP 137/71
[2022-05-01] MEDS: MAGNESIUM OXIDE 400 MG TABLET GT SCH (17:28)
[2022-05-01] MEDS: APIXABAN 5 MG TABLET PO SCH (17:30)
[2022-05-01 17:38] LABS: BASOPHILS # (AUTO) 0.1 K/uL (0.0-0.2); BASOPHILS % (AUTO) 0.4 % (0.0-2.0); EOSINOPHILS % (AUTO) 0.4 % (0.0-6.0); HEMATOCRIT 32 % (39-51); HEMOGLOBIN 10.3 g/dL (13.5-17.5); LYMPHOCYTES # (AUTO) 0.7 K/uL (0.8-4.8); MEAN CORPUSCULAR HGB CONC 32 g/dl (31.0-36.0); MEAN CORPUSCULAR VOLUME 87 fL (80-96); MONOCYTES # (AUTO) 1.2 K/uL (0.1-1.30); MONOCYTES % (AUTO) 6.9 % (2.0-12.0); NEUTROPHILS # (AUTO) 15.7 K/uL (1.8-8.9); NEUTROPHILS % (AUTO) 88.3 % (43.0-81.0); PLATELET COUNT (AUTO) 244 K/uL (150-450); RED BLOOD CELL COUNT(AUTO) 3.69 MIL/uL (4.5-6.0); WHITE BLOOD COUNT (AUTO) 17.7 K/uL (4.3-11.0)
[2022-05-01] MEDS: IV NS 0.9% 1,000 ML IV PRN (18:07)
--- NOTE | 2022-05-01 19:22 | NUR ---
PIANO ASSEMBLER CLOSING NOTE PT REMAINS IN BED, NON-VERBAL, OPENS EYES, STILL CONTINUES TO FOLLOW SIMPLE COMMANDS; OTHERWISE NO SIGNIFICANT CHANGES TO NEURO STATUS. PT REMAINS ON SAME VENT SETTINGS; PT TOLERATED VENT SETTINGS WELL; O2SAT STABLE AT 95% THROUGHOUT THE WHOLE SHIFT, NO S/S OF RESP DISTRESS, NO SOB OR COUGH, NON-LABORED AND EQUAL BREATHING; NOTED TO HAVE A LOT OF SECRETIONS COMING FROM MOUTH; PT SUCTIONED APPROPRIATELY. ATTACHED TO EXTERNAL MONITOR, SR . MACHADO INTACT AND PATENT WITH NO SIGNS OF LEAKING, DRAINING CLEAR AND YELLOW URINE.GTF WITH GLUCERNA RUNNING AT 70 ML/HR; NO RESIDUALS NOTED. ADAN MIDLINE INTACT AND PATENT, FLUSHES EASILY WITH NO RESISTANCE, NS RUNNING AT 75 ML/HR. ALL DUE MEDS ADMINISTERED DURING THE SHIFT. BED IN LOWEST POSITION, CALL LIGHT WITHIN REACH, SIDE RAILS UP X3. WILL ENDORSE TO NIGHTSHIFT NURSE TO CONTINUE TO MONITOR
--- NOTE | 2022-05-01 19:30 | NUR ---
RN NOTES, RECEIVED PT IN BED OPEN EYES SPONTANEOUSLY, WITH COLLAR NECK IN PLACED, ON MECHANICAL VENTILATOR, TOLERATED SETTING WELL, NO SOB/ACUTE DISTRESS NOTED, O2SAT STABLE AT 95%, NSR IN TELE MONITOR, MACHADO CATHETER IN PLACE, NOTED WITH EXCESSIVE SEDIMENTATION, ORDER TO FLUSH CATHETER PRN, INTACT AND PATENT DRAINING CLEAR AND YELLOW CLOUDY URINE, GT IN PLACE, GLUCERNA RUNNING AT 70 ML/HR, NO RESIDUALS NOTED AT THIS TIME, ADAN MIDLINE INTACT AND PATENT, 0.9% AT 75 ML/HR, BED IN LOWEST POSITION, CALL LIGHT WITHIN REACH, SIDE RAILS UP X3, SUCTIONED FOR ACCUMULATED SECRETIONS AT THIS TIME, WILL CONTINUE TO MONITOR CLOSELY.
[2022-05-01 20:00] VITALS: BP 119/58
[2022-05-01] MEDS: DOCUSATE SODIUM LIQ 100 MG/10 ML UDC GT SCH (21:14)
[2022-05-01] MEDS: ATORVASTATIN 10 MG TABLET GT SCH (21:14)
[2022-05-01] MEDS: INSULIN GLARGINE, 100 UNIT/ML CARTRIDGE SQ SCH (22:59)
[2022-05-02] VITALS: BP 142/52
[2022-05-02 04:00] VITALS: BP 130/60
[2022-05-02] MEDS: CEFEPIME 2 GM in IV D5W 100 ML IV SCH ×3 (06:05→21:51)
[2022-05-02] MEDS: BLOOD SUGAR DIAGNOSTIC 1 EACH STRIP IN SCH ×4 (06:10→23:07)
[2022-05-02] MEDS: INSULIN REGULAR, HUMAN 100 UNIT/ML 3 ML VIAL SQ PRN ×4 (06:13→23:07)
[2022-05-02 06:41] LABS: BASOPHILS % (AUTO) 0.1 % (0.0-2.0); EOSINOPHILS % (AUTO) 0.8 % (0.0-6.0); HEMATOCRIT 31 % (39-51); HEMOGLOBIN 10.2 g/dL (13.5-17.5); LYMPHOCYTES # (AUTO) 0.6 K/uL (0.8-4.8); LYMPHOCYTES % (AUTO) 4.4 % (20.0-44.0); MEAN CORPUSCULAR HGB CONC 33 g/dl (31.0-36.0); MEAN CORPUSCULAR VOLUME 87 fL (80-96); MONOCYTES # (AUTO) 1.2 K/uL (0.1-1.30); MONOCYTES % (AUTO) 8.2 % (2.0-12.0); NEUTROPHILS # (AUTO) 12.7 K/uL (1.8-8.9); NEUTROPHILS % (AUTO) 86.5 % (43.0-81.0); PLATELET COUNT (AUTO) 254 K/uL (150-450); RED BLOOD CELL COUNT(AUTO) 3.57 MIL/uL (4.5-6.0); WHITE BLOOD COUNT (AUTO) 14.7 K/uL (4.3-11.0)
--- NOTE | 2022-05-02 06:42 | NUR ---
RN NOTES, PATIENT I BED ASLEEP AROUSES TO VERBAL STIMULI, WITH COLLAR NECK IN PLACED, ON MECHANICAL VENTILATOR, TOLERATED SETTING WELL, NO SOB/ACUTE DISTRESS NOTED DURING THE NIGHT, O2SAT STABLE > 94% NSR IN TELE MONITOR, MACHADO CATHETER IN PLACE, NOTED WITH EXCESSIVE SEDIMENTATION, ORDER TO FLUSH CATHETER PRN, NOTED WITH HEMATURIA THIS MORNING, RYLIEMA INFORMED AND PER HER TO HOLD ANTICOAGULANTS, OTHERWISE NO SIGNIFICANT CHANGE IN CONDITION, F/C IRRIGATED NEEDED 2050ML OUTPUT LAST NIGHT, BED IN LOWEST POSITION, CALL LIGHT WITHIN REACH, SIDE RAILS UP X3, SUCTIONED PRN FOR ACCUMULATE SECRETIONS, WILL ENDORSE CONTINUITY OF CARE TO ONCOMING NURSE.
[2022-05-02 06:50] LABS: CARBON DIOXIDE 32 mmol/L (21-32); CHLORIDE 97 mmol/L (98-107); CREATININE 1.3 mg/dL (0.6-1.3); GLUCOSE 187 mg/dL (74-106); MAGNESIUM 2.2 mg/dL (1.8-2.4); PHOSPHORUS 4.1 mg/dL (2.5-4.9); POTASSIUM 4.6 mmol/L (3.5-5.1); SODIUM SERUM 133 mmol/L (136-145); UREA NITROGEN, BLOOD 35 mg/dL (7-18)
--- NOTE | 2022-05-02 07:28 | NUR ---
AWNING ERECTOR OPENING NOTE PT RECEIVED IN BED, NON-VERBAL, OPENS EYES, PT IS ABLE TO FOLLOW SIMPLE COMMANDS . PT ON PORTEX #7, AC 14, TV 500, FIO2 45%, PEEP 5; CURRENT O2SAT OF 97%, NO S/S OF RESP DISTRESS, NO SOB , NON-LABORED AND EQUAL BREATHING; APPEARS COMFORTABLE OVERALL. PT ATTACHED TO EXTERNAL MONITOR, SR . MACHADO INTACT AND PATENT WITH NO SIGNS OF LEAKING, DRAINING PINK URINE. GTF WITH GLUCERNA RUNNING AT 70 ML/HR. ADAN MIDLINE INTACT AND PATENT, FLUSHES EASILY WITH NO RESISTANCE, NS RUNNING AT 75 ML/HR. BED IN LOWEST POSITION, CALL LIGHT WITHIN REACH, SIDE RAILS UP X3. WILL CONTINUE TO MONITOR
[2022-05-02] MEDS: PANTOPRAZOLE 40 MG TABLET.DR PO SCH (07:47)
[2022-05-02 08:00] VITALS: BP 132/60
[2022-05-02] MEDS: APIXABAN 5 MG TABLET PO SCH ×2 (09:00→17:00)
[2022-05-02] MEDS: CHLORHEXIDINE GLUCONATE 15 ML UDC MM SCH ×2 (09:58→21:52)
[2022-05-02] MEDS: METOPROLOL TARTRATE 25 MG TABLET GT SCH ×2 (09:59→21:53)
[2022-05-02] MEDS: CHOLECALCIFEROL 1,000 UNIT TABLET (VIT D3) GT SCH (09:59)
[2022-05-02] MEDS: MULTIVIT W/MINERALS 1 TAB TABLET GT SCH (10:00)
[2022-05-02] MEDS ORDERED: FLUCONAZOLE IN NS 100 MG in PREMIX 1 EA IV SCH ×2 (10:00)
[2022-05-02] MEDS: FOLIC ACID 1 MG TABLET GT SCH (10:00)
[2022-05-02] MEDS: ASCORBIC ACID 500 MG TABLET GT SCH (10:00)
[2022-05-02] MEDS: GLUCERNA 1.2 1,000 ML BOTTLE PEG PRN (11:31)
[2022-05-02] MEDS: IV NS 0.9% 1,000 ML IV PRN (11:32)
[2022-05-02 12:00] VITALS: BP 127/64
--- NOTE | 2022-05-02 13:28 | NUR ---
rn notes: called and spoke to DR Boyd apixaban was held urine was pink this morning and now is tea color if he want to resume it he said to hold it tiill tomorrow morning
[2022-05-02 16:00] VITALS: BP 136/56
--- NOTE | 2022-05-02 17:27 | NUR ---
RN notes: held eliquis as per DR Deb hughes
[2022-05-02] MEDS: MAGNESIUM OXIDE 400 MG TABLET GT SCH (18:24)
--- NOTE | 2022-05-02 19:17 | NUR ---
TRIMMING ASSEMBLER CLOSING NOTE PT REMAINS IN BED, NON-VERBAL, OPENS EYES, STILL CONTINUES TO FOLLOW SIMPLE COMMANDS; OTHERWISE NO SIGNIFICANT CHANGES TO NEURO STATUS. PT REMAINS ON SAME VENT SETTINGS; PT TOLERATED VENT SETTINGS WELL; O2SAT STABLE AT 98% THROUGHOUT THE WHOLE SHIFT, NO S/S OF RESP DISTRESS, NO SOB OR COUGH, NON-LABORED AND EQUAL BREATHING; NOTED TO HAVE A LOT OF SECRETIONS COMING FROM MOUTH; PT SUCTIONED APPROPRIATELY. ATTACHED TO EXTERNAL MONITOR, SR . MACHADO INTACT AND PATENT WITH NO SIGNS OF LEAKING, DRAINING DARK YELLOW URINE WITH SEDIMENT.FLUSHED MACHADO NEEDED.GTF WITH GLUCERNA RUNNING AT 70 ML/HR; NO RESIDUALS NOTED. ADAN MIDLINE INTACT AND PATENT, FLUSHES EASILY WITH NO RESISTANCE, NS RUNNING AT 75 ML/HR. ALL DUE MEDS ADMINISTERED DURING THE SHIFT. BED IN LOWEST POSITION, CALL LIGHT WITHIN REACH, SIDE RAILS UP X3. WILL ENDORSE TO NIGHTSHIFT NURSE TO CONTINUE TO MONITOR
[2022-05-02 20:00] VITALS: BP 140/79
[2022-05-02] MEDS: DOCUSATE SODIUM LIQ 100 MG/10 ML UDC GT SCH (21:52)
[2022-05-02] MEDS: ATORVASTATIN 10 MG TABLET GT SCH (21:52)
[2022-05-02] MEDS: INSULIN GLARGINE, 100 UNIT/ML CARTRIDGE SQ SCH (23:06)
[2022-05-03] VITALS: BP 141/71
[2022-05-03 04:00] VITALS: BP 153/73
[2022-05-03] MEDS: CEFEPIME 2 GM in IV D5W 100 ML IV SCH ×3 (05:26→21:29)
[2022-05-03] MEDS: BLOOD SUGAR DIAGNOSTIC 1 EACH STRIP IN SCH ×3 (05:30→17:13)
[2022-05-03] MEDS: INSULIN REGULAR, HUMAN 100 UNIT/ML 3 ML VIAL SQ PRN (05:31)
[2022-05-03] MEDS: GLUCERNA 1.2 1,000 ML BOTTLE PEG PRN (05:54)
--- NOTE | 2022-05-03 06:42 | NUR ---
RN CLOSING NOTES, PT IN BED OPEN EYES SPONTANEOUSLY, WITH COLLAR NECK IN PLACED, ON MECHANICAL VENTILATOR, TOLERATED SETTING WELL, NO SOB/ACUTE DISTRESS NOTED, O2SAT > 95%, NSR IN TELE MONITOR, ADAN MIDLINE INTACT AND PATENT, 0.9% AT 75 ML/HR, MACHADO CATHETER IN PLACE, ORDER TO FLUSH CATHETER PRN, PATENT AND INTACT, DRAINING CLEAR AND YELLOW LESS SEDIMENTATION THAN YESTERDAY, NO MORE HEMATURIA NOTED, GT IN PLACE, GLUCERNA RUNNING AT 70 ML/HR, NO RESIDUALS NOTED, NO INSULIN ADMINISTERED THIS MORNING, BLOOD SUGAR 114, BED IN LOWEST POSITION, CALL LIGHT WITHIN REACH, SIDE RAILS UP X3, SUCTIONED FOR ACCUMULATED SECRETIONS, NO SIGNIFICANT CHANGE IN CONDITION DURING THE NIGHT, AFEBRILE, WILL ENDORSE CONTINUITY OF CARE TO ONCOMING NURSE.
--- NOTE | 2022-05-03 07:38 | NUR ---
RN OPENING NOTES, PATIENT IN BED OPEN EYES SPONTANEOUSLY, WITH COLLAR NECK IN PLACED, ON MECHANICAL VENTILATOR, TOLERATED SETTING WELL, NO SOB/ACUTE DISTRESS NOTED, O2SAT > 95%, NSR IN TELE MONITOR, ADAN MIDLINE INTACT AND PATENT, RUNNING NORMAL SALINE AT 75 ML/HR, MACHADO CATHETER IN PLACE, ORDER TO FLUSH CATHETER PRN, PATENT AND INTACT, DRAINING CLEAR AND YELLOW SEDIMENTATION, GT IN PLACE, GLUCERNA RUNNING AT 70 ML/HR, BED IN LOWEST POSITION, CALL LIGHT WITHIN REACH, SIDE RAILS UP X3. WILL CONTINUE PLAN OF CARE AND ANTICIPATE NEEDS.
[2022-05-03 08:00] VITALS: BP 137/68
[2022-05-03] MEDS: CHOLECALCIFEROL 1,000 UNIT TABLET (VIT D3) GT SCH (08:04)
[2022-05-03] MEDS: ASCORBIC ACID 500 MG TABLET GT SCH (08:04)
[2022-05-03] MEDS: APIXABAN 5 MG TABLET PO SCH ×2 (08:04→16:10)
[2022-05-03] MEDS: MULTIVIT W/MINERALS 1 TAB TABLET GT SCH (08:04)
[2022-05-03] MEDS: PANTOPRAZOLE 40 MG TABLET.DR PO SCH (08:04)
[2022-05-03] MEDS: CHLORHEXIDINE GLUCONATE 15 ML UDC MM SCH ×2 (08:04→21:29)
[2022-05-03] MEDS: FOLIC ACID 1 MG TABLET GT SCH (08:04)
[2022-05-03] MEDS: METOPROLOL TARTRATE 25 MG TABLET GT SCH ×2 (09:15→21:30)
[2022-05-03 12:00] VITALS: BP 159/78
[2022-05-03] MEDS: IV NS 0.9% 1,000 ML IV PRN (13:48)
[2022-05-03 16:00] VITALS: BP 116/65
[2022-05-03] MEDS: MAGNESIUM OXIDE 400 MG TABLET GT SCH (17:12)
--- NOTE | 2022-05-03 18:50 | NUR ---
RN CLOSING NOTES, PATIENT IN BED OPEN EYES SPONTANEOUSLY, WITH COLLAR NECK IN PLACED, ON MECHANICAL VENTILATOR, TOLERATED SETTING WELL, NO SOB/ACUTE DISTRESS NOTED, O2SAT > 95%, NSR IN TELE MONITOR, ADAN MIDLINE INTACT AND PATENT, RUNNING NORMAL SALINE AT 75 ML/HR, MACHADO CATHETER IN PLACE, ORDER TO FLUSH CATHETER PRN, PATENT AND INTACT, DRAINING CLEAR AND YELLOW SEDIMENTATION, GT IN PLACE, GLUCERNA RUNNING AT 70 ML/HR, BED IN LOWEST POSITION, CALL LIGHT WITHIN REACH, SIDE RAILS UP X3. WILL CONTINUE PLAN OF CARE AND ANTICIPATE NEEDS. Addendum: 05/03/22 at 1852 by ZULEYKA KEANE RN LAST LINE OF THE NOTE SHOULD READ "ALL DUE MEDICATIONS ADMINISTERED, WILL ENDORSE TO ONCOMING NIGHTSHIFT RN FOR CONTINUATION OF CARE."
--- NOTE | 2022-05-03 19:50 | NUR ---
RN OPENING NOTE PATIENT ASLEEP IN BED. A/OX1. NO S/S OF DISTRESS, BREATHING WITHOUT DIFFICULTY MECHANICAL VENT. ADAN MIDLINE #18 INTACT AND PATENT W/ NS 75ML/HR. TELE READS SR 75. SAFETY MEASURES IN PLACE: BED LOCKED AND AT LOWEST POSITION, RAILS UP X2, CALL LANDAVERDE WITHIN REACH. WILL CONTINUE TO MONITOR THE PATIENT.
[2022-05-03 20:00] VITALS: BP 110/72
[2022-05-03] MEDS: DOCUSATE SODIUM LIQ 100 MG/10 ML UDC GT SCH (21:29)
[2022-05-03] MEDS: ATORVASTATIN 10 MG TABLET GT SCH (21:30)
[2022-05-03] MEDS: INSULIN GLARGINE, 100 UNIT/ML CARTRIDGE SQ SCH (21:54)
[2022-05-04] VITALS: BP 125/57
[2022-05-04] MEDS: BLOOD SUGAR DIAGNOSTIC 1 EACH STRIP IN SCH ×5 (00:34→23:10)
[2022-05-04] MEDS: INSULIN REGULAR, HUMAN 100 UNIT/ML 3 ML VIAL SQ PRN ×2 (00:34→23:12)
--- NOTE | 2022-05-04 07:30 | NUR ---
RN OPENING NOTE PATIENT ASLEEP IN BED. A/OX1. NO S/S OF DISTRESS, BREATHING WITHOUT DIFFICULTY MECHANICAL VENT. ADAN MIDLINE #18 INTACT AND PATENT W/ NS 75ML/HR. PATIENT HAS GTUBE RUNNING GLUCERNA 70ML/HR. TELE READS SR 66. SAFETY MEASURES IN PLACE: BED LOCKED AND AT LOWEST POSITION, RAILS UP X2, CALL LANDAVERDE WITHIN REACH. WILL CONTINUE TO MONITOR THE PATIENT.
[2022-05-04 08:00] VITALS: BP 156/74
[2022-05-04] MEDS: PANTOPRAZOLE 40 MG TABLET.DR PO SCH (08:31)
[2022-05-04] MEDS: CHOLECALCIFEROL 1,000 UNIT TABLET (VIT D3) GT SCH (08:31)
[2022-05-04] MEDS: MULTIVIT W/MINERALS 1 TAB TABLET GT SCH (08:32)
[2022-05-04] MEDS: FOLIC ACID 1 MG TABLET GT SCH (08:32)
[2022-05-04] MEDS: METOPROLOL TARTRATE 25 MG TABLET GT SCH ×2 (08:32→21:11)
[2022-05-04] MEDS: ASCORBIC ACID 500 MG TABLET GT SCH (08:34)
[2022-05-04] MEDS: APIXABAN 5 MG TABLET PO SCH ×2 (08:34→17:55)
[2022-05-04] MEDS: CHLORHEXIDINE GLUCONATE 15 ML UDC MM SCH ×2 (08:35→21:10)
--- NOTE | 2022-05-04 11:14 | NUR ---
RN NOTE INFORMED DR. CONNELLY OF BLOOD CULTURE RESULT OF GRAM POSITIVE COCCI IN CLUSTERS, AWAITING FOR NEW ORDERS.
[2022-05-04 12:00] VITALS: BP 157/72
[2022-05-04] MEDS: CEFEPIME 2 GM in IV D5W 100 ML IV SCH ×2 (12:44→21:10)
[2022-05-04 16:00] VITALS: BP 159/68
[2022-05-04] MEDS: MAGNESIUM OXIDE 400 MG TABLET GT SCH (17:55)
--- NOTE | 2022-05-04 19:10 | NUR ---
RN NOTES RECEIVED REPORT FROM MORNING SHIFT. PATIENT IN BED A/O X1. WITH TRACH CONNECTED TO MV WITH PRESCRIBED SETTINGS. WITH GT PATENT NO GASTRIC RESIDUAL ON CONTINUOS FEEDING OF GLUCERNA AT 70CC/HR. WITH R UA MIDLINE PATENT FLUSHES WELL WITH ONGOING IVF OF PNS @ 75CC/HR. WITH MACHADO CATHETER CONNECTED TO URINE BAG DRAINING WELL. ALL SAFETY MEASURES IN PLACE AT ALL TIME. HOB ELEVATED. CALL LIGHT WITHIN REACH. WILL CLOSELY MONITOR THE PATIENT
[2022-05-04 20:00] VITALS: BP 141/73
[2022-05-04] MEDS: ATORVASTATIN 10 MG TABLET GT SCH (21:10)
[2022-05-04] MEDS: DOCUSATE SODIUM LIQ 100 MG/10 ML UDC GT SCH (21:10)
[2022-05-04] MEDS: GLUCERNA 1.2 1,000 ML BOTTLE PEG PRN (21:11)
[2022-05-04] MEDS: IV NS 0.9% 1,000 ML IV PRN ×2 (22:14→22:16)
[2022-05-04] MEDS: INSULIN GLARGINE, 100 UNIT/ML CARTRIDGE SQ SCH (23:10)
[2022-05-05] VITALS: BP 141/73
[2022-05-05 04:00] VITALS: BP 127/85
[2022-05-05] MEDS: CEFEPIME 2 GM in IV D5W 100 ML IV SCH ×3 (05:23→21:32)
[2022-05-05] MEDS: BLOOD SUGAR DIAGNOSTIC 1 EACH STRIP IN SCH ×4 (05:43→23:19)
[2022-05-05] MEDS: INSULIN REGULAR, HUMAN 100 UNIT/ML 3 ML VIAL SQ PRN ×2 (05:44→23:27)
--- NOTE | 2022-05-05 06:54 | NUR ---
RN NOTES PATIENT REMAINS STABLE NO SIGNIFICANT CHANGES IN HEALTH CONDITION. ALL DUE MEDS GIVEN ORDERED. STILL ON VENTILATOR WITH PRESCRIBED SETTINGS. GT PATENT ON CONTINUOS FEEDING. MACHADO PATENT FLUSHES WELL. ALL SAFETY MEASURES IN PLACE AT ALL TIMES. WILL ENDORSED TO MORNING SHIFT FOR [place]
--- NOTE | 2022-05-05 07:30 | NUR ---
RN OPENING NOTE PATIENT ASLEEP IN BED. A/OX1. NO S/S OF DISTRESS, BREATHING WITHOUT DIFFICULTY MECHANICAL VENT. ADAN MIDLINE #18 INTACT AND PATENT W/ NS 75ML/HR. SAFETY MEASURES IN PLACE: BED LOCKED AND AT LOWEST POSITION, RAILS UP X2, CALL LANDAVERDE WITHIN REACH. WILL CONTINUE TO MONITOR THE PATIENT.
[2022-05-05] MEDS: PANTOPRAZOLE 40 MG TABLET.DR PO SCH (07:46)
[2022-05-05 08:00] VITALS: BP 157/62
--- NOTE | 2022-05-05 08:30 | NUR ---
telephone messenger note notified to dr baltazar that hr range 57-60 stated that will check it
[2022-05-05] MEDS: ASCORBIC ACID 500 MG TABLET GT SCH (08:36)
[2022-05-05] MEDS: FOLIC ACID 1 MG TABLET GT SCH (08:36)
[2022-05-05] MEDS: MULTIVIT W/MINERALS 1 TAB TABLET GT SCH (08:36)
[2022-05-05] MEDS: METOPROLOL TARTRATE 25 MG TABLET GT SCH (08:38)
[2022-05-05] MEDS: CHOLECALCIFEROL 1,000 UNIT TABLET (VIT D3) GT SCH (08:39)
[2022-05-05] MEDS: APIXABAN 5 MG TABLET PO SCH ×2 (08:40→17:24)
[2022-05-05] MEDS: CHLORHEXIDINE GLUCONATE 15 ML UDC MM SCH ×2 (08:40→21:31)
[2022-05-05 12:00] VITALS: BP 151/67
[2022-05-05] MEDS: IV NS 0.9% 1,000 ML IV PRN (14:14)
[2022-05-05] MEDS: GLUCERNA 1.2 1,000 ML BOTTLE PEG PRN (15:51)
[2022-05-05 16:00] VITALS: BP 178/68
[2022-05-05] MEDS: MAGNESIUM OXIDE 400 MG TABLET GT SCH (17:20)
--- NOTE | 2022-05-05 19:10 | NUR ---
RN NOTES RECEIVED REPORT FROM MORNING SHIFT. PATIENT IN BED A/O X1 OPENS EYES. WITH TRACH CONNECTED TO MV WITH PRESCRIBED SETTINGS. WITH NECK COLLAR IN PLACE AT ALL TIMES. WITH GT PATENT NO GASTRIC RESIDUAL ON CONTINUOS FEEDING OF GLUCERNA AT 70CC/HR. WITH R UA MIDLINE PATENT FLUSHES WELL WITH ONGOING IVF OF PNS @ 75CC/HR. WITH MACHADO CATHETER CONNECTED TO URINE BAG DRAINING WELL. ALL SAFETY MEASURES IN PLACE AT ALL TIME. HOB ELEVATED. CALL LIGHT WITHIN REACH. WILL CLOSELY MONITOR THE PATIENT
[2022-05-05 20:00] VITALS: BP 150/76
[2022-05-05] MEDS: ATORVASTATIN 10 MG TABLET GT SCH (21:32)
[2022-05-05] MEDS: DOCUSATE SODIUM LIQ 100 MG/10 ML UDC GT SCH (21:32)
[2022-05-05] MEDS: INSULIN GLARGINE, 100 UNIT/ML CARTRIDGE SQ SCH (23:24)
[2022-05-06] VITALS: BP 132/79
[2022-05-06 04:00] VITALS: BP 136/74
[2022-05-06] MEDS: BLOOD SUGAR DIAGNOSTIC 1 EACH STRIP IN SCH ×4 (05:14→23:01)
[2022-05-06] MEDS: CEFEPIME 2 GM in IV D5W 100 ML IV SCH ×3 (05:14→21:04)
[2022-05-06] MEDS: INSULIN REGULAR, HUMAN 100 UNIT/ML 3 ML VIAL SQ PRN ×2 (05:15→18:42)
[2022-05-06] MEDS: IV NS 0.9% 1,000 ML IV PRN ×2 (05:17→20:40)
--- NOTE | 2022-05-06 07:30 | NUR ---
RN OPENING NOTE PATIENT IS IN BED ASLEEP BUT OPENS EYES TO VERBAL AND TOUCH, ALERT, ORIENTED X 1. WITH TRACHEOSTOMY TO MECHANICAL VENTILATOR WITH THE FOLLOWING SETTINGS: AC MODE, RR 14 TV 500, FIO2 45%, PEEP 5. SINUS BRADYCARDIA AT 55 BPM ON EPIC [facility] SPECIALISTS. BREATHING UNLABORED AND NOT IN ANY FORM OF DISTRESS. G-TUBE INTACT AND INFUSING WITH GLUCERNA AT 70 CC/HR. RIGHT UPPER ARM MIDLINE INTACT AND INFUSING WITH NS AT 75 CC/HR, NO INFILTRATION NOTED ON IV SITE. MACHADO CATHETER INTACT AND ATTACHED TO URINE BAG DRAINING TO YELLOW URINE WITH SEDIMENTS. BED IS LOCKED IN LOWEST POSITION, 3 SIDE RAILS UP, CALL LIGHT WITHIN REACH. WILL CONTINUE TO MONITOR THROUGHOUT SHIFT.
[2022-05-06 07:53] LABS: WHITE BLOOD COUNT (AUTO) 9.2 K/uL (4.3-11.0)
[2022-05-06 07:54] LABS: BASOPHILS # (AUTO) 0.1 K/uL (0.0-0.2); BASOPHILS % (AUTO) 0.6 % (0.0-2.0); EOSINOPHILS % (AUTO) 2.7 % (0.0-6.0); HEMATOCRIT 32 % (39-51); HEMOGLOBIN 10.4 g/dL (13.5-17.5); LYMPHOCYTES # (AUTO) 0.9 K/uL (0.8-4.8); LYMPHOCYTES % (AUTO) 9.9 % (20.0-44.0); MEAN CORPUSCULAR HGB CONC 33 g/dl (31.0-36.0); MEAN CORPUSCULAR VOLUME 87 fL (80-96); MONOCYTES # (AUTO) 1.2 K/uL (0.1-1.30); MONOCYTES % (AUTO) 12.6 % (2.0-12.0); NEUTROPHILS # (AUTO) 6.8 K/uL (1.8-8.9); NEUTROPHILS % (AUTO) 74.2 % (43.0-81.0); PLATELET COUNT (AUTO) 323 K/uL (150-450)
[2022-05-06 09:04] VITALS: BP 158/72
[2022-05-06] MEDS: CHLORHEXIDINE GLUCONATE 15 ML UDC MM SCH ×2 (09:41→21:04)
[2022-05-06] MEDS: FOLIC ACID 1 MG TABLET GT SCH (09:41)
[2022-05-06] MEDS: MULTIVIT W/MINERALS 1 TAB TABLET GT SCH (09:41)
[2022-05-06] MEDS: ASCORBIC ACID 500 MG TABLET GT SCH (09:42)
[2022-05-06] MEDS: CHOLECALCIFEROL 1,000 UNIT TABLET (VIT D3) GT SCH (09:42)
[2022-05-06] MEDS: PANTOPRAZOLE 40 MG TABLET.DR PO SCH (09:43)
[2022-05-06] MEDS: APIXABAN 5 MG TABLET PO SCH ×2 (09:43→17:25)
[2022-05-06 12:04] VITALS: BP 162/72
[2022-05-06] MEDS: GLUCERNA 1.2 1,000 ML BOTTLE PEG PRN (12:34)
[2022-05-06] MEDS: AMLODIPINE BESYLATE 10 MG TABLET PO SCH (13:18)
[2022-05-06 16:00] VITALS: BP 135/58
[2022-05-06] MEDS: MAGNESIUM OXIDE 400 MG TABLET GT SCH (17:24)
--- NOTE | 2022-05-06 17:31 | NUR ---
RN NOTE PATIENT COMPLAINED OF BACK PAIN. REPOSITIONED PATIENT AND ADMINISTERED TYLENOL VIA G-TUBE. WILL CONTINUE TO MONITOR.
--- NOTE | 2022-05-06 18:59 | NUR ---
RN CLOSING NOTE PATIENT REMAINED STABLE THROUGHOUT SHIFT. TOLERATES MECHANICAL VENTILATION, BREATHING UNLABORED AND NOT IN ANY FORM OF DISTRESS. MACHADO CATHETER REMAINS INTACT. G-TUBE REMAINS INTACT AND PATENT. IV LINE INTACT AND PATENT. PATIENT WAS KEPT COMFORTABLE, SKIN CARE AND FREQUENT REPOSITIONING DONE. TRACHEAL AND ORAL SECRETIONS WERE SUCTIONED NEEDED. ALL HOSPITAL SAFETY PRECAUTIONS WERE KEPT IN PLACE. WILL ENDORSE TO FLUTE GRINDER NURSE.
[2022-05-06 20:00] VITALS: BP 130/71
--- NOTE | 2022-05-06 20:04 | NUR ---
RN Note Received patient in bed, awake, non-verbal at this time. Breathing even and unlabored. Trach/vent. Vent settings are as follows FIO2 40%, TV 500, PEEP 5, AC 14. Tolerating well, o2 saturation monitor at bedside reads 100%. HOB elevated 35 degrees. Skin is warm and dry to touch. Generalized edema. Noted with cervical collar. body straight. right upper arm midline intact, infusing NS at 75 cc/hr. PEG tube in place, infusing Glucerna at 70 cc/hr. no residual. indwleling dotson catheter intact draining orange colored urine. Patient turned and repositioned. Bed low, in locked position. Call light within reach. Will continue to monitor.
[2022-05-06] MEDS: ATORVASTATIN 10 MG TABLET GT SCH (21:03)
[2022-05-06] MEDS: DOCUSATE SODIUM LIQ 100 MG/10 ML UDC GT SCH (21:04)
[2022-05-06] MEDS: INSULIN GLARGINE, 100 UNIT/ML CARTRIDGE SQ SCH (23:00)
[2022-05-07] VITALS: BP 128/69
[2022-05-07 04:00] VITALS: BP 130/71
[2022-05-07] MEDS: CEFAZOLIN 2 GM in IV D5W 100 ML IV SCH ×3 (05:10→21:27)
[2022-05-07] MEDS: BLOOD SUGAR DIAGNOSTIC 1 EACH STRIP IN SCH ×3 (05:18→18:01)
--- NOTE | 2022-05-07 06:25 | NUR ---
PT RECEIVED ON VENT VIA TRACH, PT RESPONSIVE TO PAIN AND FOLLOWING WITH EYES. TRACH SECURED VIA TRACH TIE. SUCTIONED A SMALL AMOUNT OF THICK PHAM SECRETIONS. Addendum: 05/07/22 at 0626 by STEVEN VELASCO RT Amended: Links added.
[2022-05-07] MEDS: PANTOPRAZOLE 40 MG TABLET.DR PO SCH (07:27)
--- NOTE | 2022-05-07 07:28 | NUR ---
CHANCERY CLERK OPENING NOTE PT RECEIVED IN BED, NON-VERBAL, OPENS EYES,PER . PT ON PORTEX #7, AC 14, TV 500, FIO2 40%, PEEP 5; CURRENT O2SAT OF 97%, NO S/S OF RESP DISTRESS, NO SOB , NON-LABORED AND EQUAL BREATHING; APPEARS COMFORTABLE OVERALL. PT ATTACHED TO EXTERNAL MONITOR, HR iIS 54 PER REPORT MD AWARE. MACHADO INTACT AND PATENT WITH NO SIGNS OF LEAKING, DRAINING CLEAR AND YELLOW CLEAR URINE. GTF RUNNING WITH GLUCERNA RUNNING AT 70 ML/HR. ADAN MIDLINE INTACT AND PATENT, FLUSHES EASILY WITH NO RESISTANCE, NS RUNNING AT 75 ML/HR. BED IN LOWEST POSITION, CALL LIGHT WITHIN REACH, SIDE RAILS UP X3. WILL CONTINUE TO MONITOR
[2022-05-07 08:00] VITALS: BP 158/70
--- NOTE | 2022-05-07 08:31 | NUR ---
was called by campus monitor to check heart rate noted 38 rubbed the chest HR became 61 DR Zuleta was on the floor was notified who said to monitor
[2022-05-07] MEDS: MULTIVIT W/MINERALS 1 TAB TABLET GT SCH (08:50)
[2022-05-07] MEDS: CHLORHEXIDINE GLUCONATE 15 ML UDC MM SCH ×2 (08:50→21:27)
[2022-05-07] MEDS: CHOLECALCIFEROL 1,000 UNIT TABLET (VIT D3) GT SCH (08:50)
[2022-05-07] MEDS: ASCORBIC ACID 500 MG TABLET GT SCH (08:50)
[2022-05-07] MEDS: FOLIC ACID 1 MG TABLET GT SCH (08:50)
[2022-05-07] MEDS: AMLODIPINE BESYLATE 10 MG TABLET PO SCH (08:51)
[2022-05-07] MEDS: APIXABAN 5 MG TABLET PO SCH ×2 (08:53→17:39)
[2022-05-07] MEDS: IV NS 0.9% 1,000 ML IV PRN (11:15)
[2022-05-07 12:00] VITALS: BP 136/57
[2022-05-07] MEDS: GLUCERNA 1.2 1,000 ML BOTTLE PEG PRN (13:39)
[2022-05-07 16:00] VITALS: BP 133/65
[2022-05-07] MEDS: MAGNESIUM OXIDE 400 MG TABLET GT SCH (17:38)
--- NOTE | 2022-05-07 19:28 | NUR ---
SPEECH THERAPY ASSISTANT CLOSING NOTE PATIENT REMAINED STABLE THROUGHOUT SHIFT. TOLERATES MECHANICAL VENTILATION, BREATHING UNLABORED AND NOT IN ANY FORM OF DISTRESS. MACHADO CATHETER REMAINS INTACT. G-TUBE REMAINS INTACT AND PATENT.PT REMAINED SR ON TELE MONTOR [id number] PER CARDIOLOGY NOTED TO WORRY IF HR BELOW 30. IV LINE INTACT AND PATENT. PATIENT WAS KEPT COMFORTABLE, SKIN CARE AND FREQUENT REPOSITIONING DONE. TRACHEAL AND ORAL SECRETIONS WERE SUCTIONED NEEDED. ALL HOSPITAL SAFETY PRECAUTIONS WERE KEPT IN PLACE. WILL ENDORSE TO VENDOR ANALYST NURSE.
[2022-05-07 20:00] VITALS: BP 140/69
--- NOTE | 2022-05-07 20:00 | NUR ---
DEPUTY DIRECTOR OF FINANCE NOTE PT IN BED OBTUNDED. ON VENT/TRACH TOLERATING THE SETTINGS WELL. NO DISTRESS OR DISCOMFORT NOTED. NO S/S OF PAIN NOTED. ON TELE SB 50. GTF INFUSING GLUCERNA @70 ML/HR, 0 ML RESIDUAL NOTED. ADAN MIDLINE INTACT AND PATENT INFUSING NS 75 ML/HR. NO S/S OF HYPO OR HYPERGLYCEMIA NOTED. F/C INTACT AND PATENT DRAINING YELLOWISH COLOR URIN. REPOSITION HIM FOR SKIN MANAGEMENT AND COMFORT. KEPT HIM DRY AND CLEAN. ALL NEEDS ATTENDED. VSS CONTINUE TO MONITOR HIM.
[2022-05-07] MEDS: DOCUSATE SODIUM LIQ 100 MG/10 ML UDC GT SCH (21:27)
[2022-05-07] MEDS: ATORVASTATIN 10 MG TABLET GT SCH (21:28)
[2022-05-07] MEDS: INSULIN GLARGINE, 100 UNIT/ML CARTRIDGE SQ SCH (22:00)
[2022-05-08] VITALS: BP 143/70
[2022-05-08] MEDS: BLOOD SUGAR DIAGNOSTIC 1 EACH STRIP IN SCH ×5 (00:24→23:51)
[2022-05-08 04:00] VITALS: BP 141/61
[2022-05-08] MEDS: IV NS 0.9% 1,000 ML IV PRN ×2 (04:56→21:53)
[2022-05-08] MEDS: CEFAZOLIN 2 GM in IV D5W 100 ML IV SCH ×3 (05:13→21:44)
--- NOTE | 2022-05-08 07:16 | NUR ---
RN OPENING NOTE RECEIEVED PATIENT REPORT FROM NIGHTSHIFT. PATIENT IN BED OBTUNDED. ON VENT/TRACH TOLERATING THE SETTINGS WELL. NO DISTRESS OR DISCOMFORT NOTED. NO S/S OF PAIN NOTED. ON TELEMETRY MONITORING READING 64 BEATS PER MINUTE. GTF INFUSING GLUCERNA @70 ML/HR, 0 ML RESIDUAL NOTED. ADAN MIDLINE INTACT AND PATENT INFUSING NS 75 ML/HR. MACHADO CATHETER INTACT AND PATENT DRAINING YELLOWISH COLOR URINE. SAFETY MEASURES IMPLEMENTED, BED IN LOWEST LOCKED POSITION, CALL LIGHT WITHIN REACH, SIDE RAILS UPTIMES 2. WILL CONTINUE PLAN OF CARE AND ANTICIPATE NEEDS.
[2022-05-08 08:00] VITALS: BP 143/64
[2022-05-08] MEDS: PANTOPRAZOLE 40 MG TABLET.DR PO SCH (08:03)
[2022-05-08] MEDS: FOLIC ACID 1 MG TABLET GT SCH (08:03)
[2022-05-08] MEDS: CHOLECALCIFEROL 1,000 UNIT TABLET (VIT D3) GT SCH (08:03)
[2022-05-08] MEDS: ASCORBIC ACID 500 MG TABLET GT SCH (08:03)
[2022-05-08] MEDS: MULTIVIT W/MINERALS 1 TAB TABLET GT SCH (08:03)
[2022-05-08] MEDS: AMLODIPINE BESYLATE 10 MG TABLET PO SCH (08:05)
[2022-05-08] MEDS: APIXABAN 5 MG TABLET PO SCH ×2 (08:07→17:31)
[2022-05-08] MEDS: CHLORHEXIDINE GLUCONATE 15 ML UDC MM SCH ×2 (08:07→21:43)
[2022-05-08] MEDS: GLUCERNA 1.2 1,000 ML BOTTLE PEG PRN (08:51)
[2022-05-08 12:00] VITALS: BP 120/56
[2022-05-08 13:48] LABS: CALCIUM, SERUM 8.3 mg/dL (8.5-10.1); CARBON DIOXIDE 31 mmol/L (21-32); CHLORIDE 105 mmol/L (98-107); CREATININE 1.1 mg/dL (0.6-1.3); GLUCOSE 125 mg/dL (74-106); POTASSIUM 3.9 mmol/L (3.5-5.1); SODIUM SERUM 141 mmol/L (136-145); UREA NITROGEN, BLOOD 31 mg/dL (7-18)
[2022-05-08 16:00] VITALS: BP 138/65
[2022-05-08] MEDS: MAGNESIUM OXIDE 400 MG TABLET GT SCH (17:30)
--- NOTE | 2022-05-08 18:55 | NUR ---
RN CLOSING NOTE PATIENT IN BED OBTUNDED. ON VENT/TRACH TOLERATING THE SETTINGS WELL. NO DISTRESS OR DISCOMFORT NOTED. NO S/S OF PAIN NOTED. ON TELEMETRY MONITORING READING 53 BEATS PER MINUTE. GTF INFUSING GLUCERNA @70 ML/HR, 0 ML RESIDUAL NOTED. ADAN MIDLINE INTACT AND PATENT INFUSING NS 75 ML/HR. MACHADO CATHETER INTACT AND PATENT DRAINING YELLOWISH COLOR URINE. SAFETY MEASURES IMPLEMENTED, BED IN LOWEST LOCKED POSITION, CALL LIGHT WITHIN REACH, SIDE RAILS UPTIMES 2. WILL ENDORSE TO NIGHTSHIFT FOR CONTINUATION OF CARE.
[2022-05-08 20:00] VITALS: BP 132/65
--- NOTE | 2022-05-08 20:00 | NUR ---
AIRFRAME TECHNICIAN NOTE PT IN BED OBTUNDED. ON VENT/TRACH TOLERATING SETTINGS WELL. NO SOB, NO DISTRESS OR DISCOMFORT NOTED. NO S/S OF PAIN NOTED. ON TELE SR/SB HR 58. ON GTF GLUCERNA aT 70 ML/HR, 0 ML RESIDUAL NOTED. ADAN MIDLINE INTACT AND PATENT INFUSING NS AT 75 ML/HR, NO S/S OF INFILTRATION NOTED. KEPT HIM DRY AND CLEAN. REPOSITION HIM Q2H, ALL NEEDS ATTENDED. VSS. CONTINUE TO MONITOR HIM.
[2022-05-08] MEDS: DOCUSATE SODIUM LIQ 100 MG/10 ML UDC GT SCH (21:43)
[2022-05-08] MEDS: ATORVASTATIN 10 MG TABLET GT SCH (21:44)
[2022-05-08] MEDS: INSULIN REGULAR, HUMAN 100 UNIT/ML 3 ML VIAL SQ PRN (23:52)
[2022-05-08] MEDS: INSULIN GLARGINE, 100 UNIT/ML CARTRIDGE SQ SCH (23:53)
[2022-05-09] VITALS: BP 140/63
[2022-05-09 04:00] VITALS: BP 151/74
[2022-05-09] MEDS: GLUCERNA 1.2 1,000 ML BOTTLE PEG PRN (04:10)
[2022-05-09] MEDS: CEFAZOLIN 2 GM in IV D5W 100 ML IV SCH ×2 (05:32→12:00)
[2022-05-09] MEDS: BLOOD SUGAR DIAGNOSTIC 1 EACH STRIP IN SCH ×2 (06:03→11:56)
--- NOTE | 2022-05-09 07:41 | NUR ---
STATIONARY ENGINEER APPRENTICE NOTE PATIENT IN BED AWAKE OPEN BOTH EYES,OBTUNDED ON TELEMONITOR SR 60AT THIS TIME,WITH TRACH TO VENT SETTING ORDERED, ORAL SUCTION DONE MOD AMT WHITE SECRETION NOTED,ON IVF ORDERED RT UPPER ARM MID LONE IN PLACE, WITH G TUBE FEEDING ORDERED KEEP HOB ELEVATED AT ALL TIME, BED IN LOWEST AND LOCKED POSITION , CALL LIGHT WITHIN REACH,SAFETY MEASURE PROVIDED WILL MONITOR CLOSELY
[2022-05-09] MEDS: PANTOPRAZOLE 40 MG TABLET.DR PO SCH (07:49)
[2022-05-09 08:00] VITALS: BP 141/59
[2022-05-09] MEDS: CHLORHEXIDINE GLUCONATE 15 ML UDC MM SCH (08:15)
[2022-05-09] MEDS: FOLIC ACID 1 MG TABLET GT SCH (08:16)
[2022-05-09] MEDS: ASCORBIC ACID 500 MG TABLET GT SCH (08:16)
[2022-05-09] MEDS: AMLODIPINE BESYLATE 10 MG TABLET PO SCH (08:16)
[2022-05-09] MEDS: CHOLECALCIFEROL 1,000 UNIT TABLET (VIT D3) GT SCH (08:17)
[2022-05-09] MEDS: MULTIVIT W/MINERALS 1 TAB TABLET GT SCH (08:17)
[2022-05-09] MEDS: APIXABAN 5 MG TABLET PO SCH (08:18)
--- NOTE | 2022-05-09 10:00 | NUR ---
telegraph office manager note turn reposition,rt at bedside trach care done
--- NOTE | 2022-05-09 11:30 | NUR ---
telecommunications support note dr baltazar at bedside updated patient condition
[2022-05-09] MEDS ORDERED: CEFA1VIA19 IJ (11:50)
[2022-05-09 12:00] VITALS: BP 128/59
--- NOTE | 2022-05-09 12:00 | NUR ---
telemetry tech note son at bedside, notified that patient will be transfer to snf to [facility]
--- NOTE | 2022-05-09 13:43 | NUR ---
telegraphic typewriter operator note called to snf report given to wai ribera
--- NOTE | 2022-05-09 14:40 | NUR ---
inbound telemarketer note per dnp gail baca to have rt upper arm mid line for further administering atb at snf
--- NOTE | 2022-05-09 15:00 | NUR ---
television news video editor note per nilay galarza wound care nurse order given for sacral area , order carried out Addendum: 05/09/22 at 1536 by NICO MENENDEZ RN wrong entry, wrong chart
--- NOTE | 2022-05-09 15:31 | NUR ---
telephone directory distributor driver note dr gail Bautista notified that per dr moyer have order for thoracentesis, dr chery ordered ok to discharge to subacute without thoracentesis and f\u for chest xray in 2 days
[2022-05-09 16:00] VITALS: BP 126/66
--- NOTE | 2022-05-09 16:50 | NUR ---
READING TUTOR NOTE AMBULANCE ARRIVED ,REPORT GIVEN, TELE REMOVED, OK TO HAVE MID LINE IN PLACE , AT BEDSIDE ,NO BELONGING NOTED , WENT TO SNF WITH STABLE CONDITION
== END 2022-05-09 17:48 | DRG 870 ==
LOC: ER 01:27 → TRANSITION 05:03 → TELE1 08:39
PROVIDERS: ADMIT Nurse Practitioner Acute Care; ATTEND Nurse Practitioner Acute Care
PROC: 5A1955Z Respiratory Ventilation, Greater than 96 Consecutive Hours (ICD-10-PCS; principal; 2022-04-27)
PROC: 05H933Z Insertion of Infusion Device into Right Brachial Vein, Percutaneous Approach (ICD-10-PCS; 2022-04-28)
DX: A41.01 Sepsis due to Methicillin susceptible Staphylococcus aureus (principal); G93.41 Metabolic encephalopathy; G82.50 Quadriplegia, unspecified; J15.1 Pneumonia due to Pseudomonas; N39.0 Urinary tract infection, site not specified; Z99.11 Dependence on respirator [ventilator] status; E87.1 Hypo-osmolality and hyponatremia; J96.10 Chronic respiratory failure, unspecified whether with hypoxia or hypercapnia; D68.59 Other primary thrombophilia; J95.851 Ventilator associated pneumonia; E87.3 Alkalosis; G93.40 Encephalopathy, unspecified; I82.612 Acute embolism and thrombosis of superficial veins of left upper extremity; Z20.822 Contact with and (suspected) exposure to COVID-19; I10 Essential (primary) hypertension; Z93.0 Tracheostomy status; Z93.1 Gastrostomy status; R13.10 Dysphagia, unspecified; K21.9 Gastro-esophageal reflux disease without esophagitis; R33.9 Retention of urine, unspecified; F10.10 Alcohol abuse, uncomplicated; Y90.9 Presence of alcohol in blood, level not specified; E11.65 Type 2 diabetes mellitus with hyperglycemia; Z79.4 Long term (current) use of insulin; Z79.51 Long term (current) use of inhaled steroids; E78.5 Hyperlipidemia, unspecified; D64.9 Anemia, unspecified; Z74.01 Bed confinement status; R60.9 Edema, unspecified; Z87.81 Personal history of (healed) traumatic fracture; Z98.1 Arthrodesis status; Z79.899 Other long term (current) drug therapy; K70.9 Alcoholic liver disease, unspecified; F39 Unspecified mood [affective] disorder; Y84.8 Other medical procedures as the cause of abnormal reaction of the patient, or of later complication, without mention of misadventure at the time of the procedure; Y92.129 Unspecified place in nursing home as the place of occurrence of the external cause; L89.159 Pressure ulcer of sacral region, unspecified stage; E88.09 Other disorders of plasma-protein metabolism, not elsewhere classified; Z87.19 Personal history of other diseases of the digestive system
CPT/HCPCS: 31720; 36415; 36600; 70450-TC; 71045-TC; 80048-TC; 80076-TC; 80202-TC; 81001; 82803-TC; 82962-TC; 83605-TC; 83735-TC; 84100-TC; 84300-TC; 84443-TC; 84484-TC; 85025-TC; 85652-TC; 85730-TC; 86140-TC; 86803; 87040-TC; 87070-TC; 87081-TC; 87086-TC; 87186-TC; 87806; 93307-TC; 94002-TC; 94003-TC; 94760-TC; 94762-TC; 94799-TC; 99082-TC; A4216; A4217; A6403; C9803; G0378; J0690; J0692; J1450; J1650; J1815; J2543; J3370; J7030; J7050; J7060